=== PATIENT | female | born 1940 | race African-American/Black ===

== ENCOUNTER 2020-05-16 03:15 | Inpatient (IN) ==
[2020-05-16] MEDS ORDERED: SODIUM CHLORIDE 0.9% 500 ML IV STA (03:34)
[2020-05-16] MEDS ORDERED: ONDANSETRON 4 MG/2 ML VIAL IV STA (03:34)
[2020-05-16] MEDS ORDERED: PIPERACILLIN/TAZOBACTAM 3,375 MG in SODIUM CHLORIDE 0.9% 100 ML IV STA (03:34)
[2020-05-16] MEDS ORDERED: methylPREDNISolone SOD SUC 125 MG/2 ML VIAL IV STA (03:34)
[2020-05-16 04:23] LABS: INR 1.1
[2020-05-16 04:37] LABS: Basophils % 0.1 % (0.0-0.8); Immature Granulocytes % 1.3 %; Immature Granulocytes Absolute 0.31 #; Lymphocytes # 16.3 10*3/uL (1.4-4.0); Lymphocytes % 67.3 % (21.3-54.2); Mean Corpuscular HGB Conc 32.7 GM/DL (32-36); Mean Corpuscular Volume 84.6 FL (87-102); Mean Platelet Volume 10.3 FL (9.6-12.0); Monocytes % 14.9 % (1.7-12.7); Neutrophils % 16.4 % (38.7-73.9); Platelet Count 102 T/CUMM (130-400); Red Cell Distribution Width 19.7 % (9.3-17.3); White Blood Count 24.3 T/CUMM (4-12)
[2020-05-16 04:43] LABS: Hemoglobin 3.6 GM/DL (12.0-16.0)
[2020-05-16 04:57] LABS: Bilirubin,Total 0.5 MG/DL (0.2-1.0); Calcium 7.7 MG/DL (8.5-10.1); Total Protein 5.6 G/DL (6.4-8.3)
[2020-05-16] MEDS ORDERED: POTASSIUM CHLORIDE 20 MEQ TABLET PO STA (05:20)
[2020-05-16 05:22] LABS: Ferritin 438.5 ng/ml (8-252)
[2020-05-16] MEDS ORDERED: SODIUM CHLORIDE 0.9% 1,000 ML IV PRN ×2 (05:59→09:43)
[2020-05-16] MEDS ORDERED: ACETAMINOPHEN 325 MG TABLET PO PRN (06:01)
[2020-05-16] MEDS ORDERED: ONDANSETRON 4 MG/2 ML VIAL IV PRN (06:01)
[2020-05-16] MEDS ORDERED: NICOTINE 21 MG/24 HR PATCH TRANSDERM PRN (06:01)
[2020-05-16] MEDS ORDERED: GLUCAGON 1 MG VIAL IM PRN ×2 (06:01→10:30)
[2020-05-16] MEDS ORDERED: MORPHINE 4 MG/1 ML VIAL IV PRN (06:01)
[2020-05-16 06:24] LABS: Lymphocytes 75 % (20-55); Platelet Estimate Decreased; Segmented Neutrophils 23 % (50-85); Total Cells Counted 100
[2020-05-16 06:25] LABS: Hypochromasia 2+; Microcytosis Slight; Spherocytes Few
[2020-05-16 06:36] LABS: % Iron Saturation 89.1 % (18-50)
[2020-05-16 07:09] LABS: Folate 6.2 NG/ML (5.4-24.0)
[2020-05-16 09:44] LABS: Basophils % 0.1 % (0.0-0.8); Immature Granulocytes % 1.9 %; Immature Granulocytes Absolute 0.42 #; Lymphocytes # 14.1 10*3/uL (1.4-4.0); Lymphocytes % 63.8 % (21.3-54.2); Mean Corpuscular HGB Conc 31.6 GM/DL (32-36); Mean Corpuscular Volume 84.4 FL (87-102); Mean Platelet Volume 10.3 FL (9.6-12.0); Monocytes % 15.4 % (1.7-12.7); Neutrophils % 18.8 % (38.7-73.9); Platelet Count 112 T/CUMM (130-400); Red Blood Count 1.35 MC/CUMM (3.8-5.5); Red Cell Distribution Width 19.2 % (9.3-17.3); White Blood Count 22.1 T/CUMM (4-12)
[2020-05-16 09:53] LABS: Hematocrit 11.4 VOL% (35.7-47.0); Hemoglobin 3.6 GM/DL (12.0-16.0)
[2020-05-16 10:11] LABS: Atypical Lymphocytes Few; Band Neutrophils 2 % (0-10); Hypochromasia 2+; Lymphocytes 73 % (20-55); Segmented Neutrophils 23 % (50-85); Smudge Cells Few; Total Cells Counted 100
[2020-05-16 10:12] LABS: Microcytosis 1+
[2020-05-16] MEDS ORDERED: SODIUM CHLORIDE 0.9% 500 ML IV ONE (10:29)
[2020-05-16] MEDS ORDERED: DEXTROSE 50% 25 GM/50 ML VIAL IV PRN (10:30)
[2020-05-16] MEDS: INSULIN NPH/REGULAR 70/30 100 UNIT/ML SUBCUT SCH ×2 (11:43→17:40)
[2020-05-16] MEDS: INSULIN REGULAR 100 UNIT/ML SUBCUT SCH ×3 (11:43→19:53)
[2020-05-16] MEDS ORDERED: PIPERACILLIN/TAZOBACTAM 3,375 MG in SODIUM CHLORIDE 0.9% 100 ML IV SCH (13:00)
[2020-05-16 19:20] LABS: Hematocrit 18.3 VOL% (35.7-47.0)
[2020-05-16 19:24] LABS: Hemoglobin 6.1 GM/DL (12.0-16.0)
[2020-05-16] MEDS: DEXTROSE 50% 25 GM/50 ML VIAL IV PRN (23:33)
[2020-05-17 00:14] LABS: Hematocrit 17.6 VOL% (35.7-47.0); Hemoglobin 5.8 GM/DL (12.0-16.0)
[2020-05-17 01:34] LABS: Bilirubin,Urine Negative (Negative); Blood, Urine Negative (Negative); Glucose,Urine (UA) Negative (Negative); Hyaline Casts,Urine 1 /LPF (0-3); Ketones,Urine Negative (Negative); Nitrite,Urine Negative (Negative); Protein,Urine Negative; RBC,Urine 1 /HPF (0-4); Squamous Epithelial Cell,Urine Occasional /HPF (0-10); Urine Appearance CLEAR (Clear); Urine Color Yellow (Yellow); Urine Specific Gravity 1.045 (1.001-1.035); WBC,Urine 1 /HPF (0-6)
[2020-05-17] MEDS: DEXTROSE 50% 25 GM/50 ML VIAL IV PRN (02:44)
[2020-05-17 04:28] LABS: Basophils # 0.1 10*3/uL (0.0-0.2); Basophils % 0.2 % (0.0-0.8); Hematocrit 18.7 VOL% (35.7-47.0); Immature Granulocytes % 1.3 %; Immature Granulocytes Absolute 0.31 #; Lymphocytes # 16.9 10*3/uL (1.4-4.0); Mean Corpuscular HGB Conc 33.2 GM/DL (32-36); Mean Platelet Volume 10.6 FL (9.6-12.0); Neutrophils % 18.5 % (38.7-73.9); Red Blood Count 2.15 MC/CUMM (3.8-5.5); White Blood Count 24.4 T/CUMM (4-12)
[2020-05-17 04:32] LABS: Hemoglobin 6.2 GM/DL (12.0-16.0); Platelet Count 92 T/CUMM (130-400)
[2020-05-17 04:39] LABS: Calcium 7.8 MG/DL (8.5-10.1); Osmolality,Calculated 287.8 MOS/KG (273-304)
[2020-05-17 05:07] LABS: Band Neutrophils 4 % (0-10); Lymphocytes 69 % (20-55); Metamyelocytes 3 %; Platelet Estimate Decreased; Segmented Neutrophils 15 % (50-85); Total Cells Counted 100
[2020-05-17 05:08] LABS: Anisocytosis Slight; Atypical Lymphocytes 2+; Hypochromasia 1+; Macrocytosis Slight; Reactive Lymphocytes 2+; Smudge Cells Few
[2020-05-17] MEDS ORDERED: SODIUM CHLORIDE 0.9% 1,000 ML IV PRN (08:27)
[2020-05-17] MEDS: INSULIN REGULAR 100 UNIT/ML SUBCUT SCH ×5 (08:38→22:51)
[2020-05-17] MEDS: INSULIN NPH/REGULAR 70/30 100 UNIT/ML SUBCUT SCH ×2 (08:39→17:08)
[2020-05-17 19:31] LABS: Hematocrit 27.1 VOL% (35.7-47.0); Hemoglobin 9.1 GM/DL (12.0-16.0)
[2020-05-18 05:59] LABS: Basophils # 0.1 10*3/uL (0.0-0.2); Basophils % 0.2 % (0.0-0.8); Eosinophils # 0.1 10*3/uL (0.0-0.87); Eosinophils % 0.3 % (0.00-10.9); Hematocrit 28.3 VOL% (35.7-47.0); Hemoglobin 9.2 GM/DL (12.0-16.0); Immature Granulocytes % 1.8 %; Immature Granulocytes Absolute 0.46 #; Lymphocytes # 17.2 10*3/uL (1.4-4.0); Lymphocytes % 67.3 % (21.3-54.2); Mean Corpuscular HGB Conc 32.5 GM/DL (32-36); Mean Corpuscular Volume 87.6 FL (87-102); Mean Platelet Volume 10.9 FL (9.6-12.0); Monocytes % 18.3 % (1.7-12.7); Neutrophils % 12.1 % (38.7-73.9); Red Blood Count 3.23 MC/CUMM (3.8-5.5); Red Cell Distribution Width 15.7 % (9.3-17.3); White Blood Count 25.6 T/CUMM (4-12)
[2020-05-18 06:01] LABS: Platelet Count 96 T/CUMM (130-400)
[2020-05-18 06:27] LABS: Calcium 7.5 MG/DL (8.5-10.1); Osmolality,Calculated 294.3 MOS/KG (273-304)
[2020-05-18 06:55] LABS: Atypical Lymphocytes Few; Band Neutrophils 1 % (0-10); Hypochromasia Slight; Lymphocytes 77 % (20-55); Microcytosis Slight; Platelet Estimate Decreased; Segmented Neutrophils 21 % (50-85); Smudge Cells Few; Total Cells Counted 100
[2020-05-18] MEDS: INSULIN NPH/REGULAR 70/30 100 UNIT/ML SUBCUT SCH ×2 (07:22→16:30)
[2020-05-18] MEDS: INSULIN REGULAR 100 UNIT/ML SUBCUT SCH ×3 (07:46→16:59)
[2020-05-18] MEDS: VANCOMYCIN INJ 1,000 MG in SODIUM CHLORIDE 0.9% 250 ML IV SCH (13:50)
[2020-05-19] MEDS: VANCOMYCIN INJ 1,000 MG in SODIUM CHLORIDE 0.9% 250 ML IV SCH ×2 (00:32→13:08)
[2020-05-19 06:26] LABS: Basophils # 0.1 10*3/uL (0.0-0.2); Basophils % 0.2 % (0.0-0.8); Eosinophils % 0.2 % (0.00-10.9); Hematocrit 28.9 VOL% (35.7-47.0); Hemoglobin 9.2 GM/DL (12.0-16.0); Immature Granulocytes % 1.2 %; Immature Granulocytes Absolute 0.29 #; Lymphocytes # 16.5 10*3/uL (1.4-4.0); Lymphocytes % 67.6 % (21.3-54.2); Mean Corpuscular HGB Conc 31.8 GM/DL (32-36); Mean Corpuscular Volume 89.2 FL (87-102); Mean Platelet Volume 10.5 FL (9.6-12.0); Monocytes % 19.5 % (1.7-12.7); Neutrophils % 11.3 % (38.7-73.9); Red Blood Count 3.24 MC/CUMM (3.8-5.5); Red Cell Distribution Width 15.6 % (9.3-17.3); White Blood Count 24.4 T/CUMM (4-12)
[2020-05-19 06:27] LABS: Platelet Count 76 T/CUMM (130-400)
[2020-05-19 06:44] LABS: Calcium 7.5 MG/DL (8.5-10.1); Osmolality,Calculated 292.4 MOS/KG (273-304)
[2020-05-19 06:54] LABS: Total Cells Counted 100
[2020-05-19 06:55] LABS: Hypochromasia 2+; Lymphocytes 83 % (20-55); Microcytosis 1+; Platelet Estimate Decreased; Segmented Neutrophils 17 % (50-85)
[2020-05-19 07:00] LABS: Atypical Lymphocytes 1+; Smudge Cells Moderate
[2020-05-19] MEDS ORDERED: HEPARIN 5,000 UNIT/1 ML VIAL ONE (08:29)
[2020-05-19] MEDS: INSULIN REGULAR 100 UNIT/ML SUBCUT SCH ×4 (08:36→21:38)
[2020-05-19] MEDS: INSULIN NPH/REGULAR 70/30 100 UNIT/ML SUBCUT SCH ×2 (08:37→16:12)
[2020-05-20] MEDS: VANCOMYCIN INJ 1,000 MG in SODIUM CHLORIDE 0.9% 250 ML IV SCH ×2 (01:02→14:00)
[2020-05-20 05:38] LABS: Albumin 2.3 G/DL (3.4-5.0); Bilirubin,Total 0.6 MG/DL (0.2-1.0); Calcium 7.5 MG/DL (8.5-10.1); Total Protein 4.9 G/DL (6.4-8.3)
[2020-05-20] MEDS: INSULIN REGULAR 100 UNIT/ML SUBCUT SCH ×4 (07:07→21:03)
[2020-05-20] MEDS: INSULIN NPH/REGULAR 70/30 100 UNIT/ML SUBCUT SCH (07:07)
[2020-05-20] MEDS ORDERED: LIDOCAINE 1% 20 ML VIAL ONE (07:55)
[2020-05-20] MEDS ORDERED: BUPIVACAINE MPF 0.25% 30 ML VIAL ONE (07:55)
[2020-05-20] MEDS ORDERED: propofoL 200 MG/20 ML VIAL IV ONE (08:02)
[2020-05-20] MEDS ORDERED: LIDOCAINE 2% 5 ML VIAL ONE ×2 (08:02→08:13)
[2020-05-20] MEDS ORDERED: MIDAZOLAM 2 MG/2 ML VIAL ONE (08:04)
[2020-05-20] MEDS ORDERED: DEXMEDETOMIDINE 200 MCG/2 ML VIAL ONE (08:33)
[2020-05-20] MEDS ORDERED: LACTATED RINGERS 1,000 ML IV ONE (08:37)
[2020-05-21] MEDS: VANCOMYCIN INJ 1,000 MG in SODIUM CHLORIDE 0.9% 250 ML IV SCH ×2 (01:14→12:57)
[2020-05-21 05:42] LABS: Basophils # 0.1 10*3/uL (0.0-0.2); Basophils % 0.2 % (0.0-0.8); Eosinophils # 0.1 10*3/uL (0.0-0.87); Eosinophils % 0.5 % (0.00-10.9); Hematocrit 26.1 VOL% (35.7-47.0); Hemoglobin 8.3 GM/DL (12.0-16.0); Immature Granulocytes % 0.9 %; Immature Granulocytes Absolute 0.18 #; Lymphocytes # 13.9 10*3/uL (1.4-4.0); Lymphocytes % 67.9 % (21.3-54.2); Mean Corpuscular HGB Conc 31.8 GM/DL (32-36); Mean Corpuscular Volume 89.1 FL (87-102); Mean Platelet Volume 10.9 FL (9.6-12.0); Neutrophils % 11.5 % (38.7-73.9); Red Blood Count 2.93 MC/CUMM (3.8-5.5); Red Cell Distribution Width 15.4 % (9.3-17.3); White Blood Count 20.5 T/CUMM (4-12)
[2020-05-21 05:46] LABS: Platelet Count 64 T/CUMM (130-400)
[2020-05-21 06:10] LABS: Calcium 7.8 MG/DL (8.5-10.1); Osmolality,Calculated 280.1 MOS/KG (273-304)
[2020-05-21 06:21] LABS: Total Protein (Chem) 5.8 G/DL (6.4-8.3)
[2020-05-21 06:47] LABS: Atypical Lymphocytes 2+; Band Neutrophils 4 % (0-10); Eosinophils 1 % (0-10); Lymphocytes 66 % (20-55); Platelet Estimate Decreased; Reactive Lymphocytes 2+; Segmented Neutrophils 11 % (50-85); Total Cells Counted 100
[2020-05-21 06:48] LABS: Smudge Cells Moderate
[2020-05-21 08:17] LABS: Albumin (SPE) 3.8 G/DL (3.2-5.3); Albumin (SPE) Rel % 65.8 %; Alpha 1 (SPE) 0.2 G/DL (0.1-0.4); Alpha 1 (SPE) Rel % 4.1 %; Alpha 2 (SPE) 0.7 G/DL (0.4-1.0); Alpha 2 (SPE) Rel % 11.7 %; Beta (SPE) 0.6 G/DL (0.5-1.1); Beta (SPE) Rel % 10.9 %; Gamma (SPE) 0.4 G/DL (0.7-1.7)
[2020-05-21 08:49] LABS: Gamma (SPE) Rel % 7.5 %
[2020-05-21] MEDS: INSULIN REGULAR 100 UNIT/ML SUBCUT SCH ×4 (09:04→21:28)
[2020-05-22] MEDS: VANCOMYCIN INJ 1,000 MG in SODIUM CHLORIDE 0.9% 250 ML IV SCH ×2 (01:55→12:49)
[2020-05-22 05:45] LABS: Basophils # 0.1 10*3/uL (0.0-0.2); Basophils % 0.3 % (0.0-0.8); Eosinophils # 0.1 10*3/uL (0.0-0.87); Eosinophils % 0.4 % (0.00-10.9); Hematocrit 24.6 VOL% (35.7-47.0); Hemoglobin 7.9 GM/DL (12.0-16.0); Immature Granulocytes % 0.9 %; Immature Granulocytes Absolute 0.17 #; Lymphocytes # 11.9 10*3/uL (1.4-4.0); Lymphocytes % 65.2 % (21.3-54.2); Mean Corpuscular HGB Conc 32.1 GM/DL (32-36); Mean Corpuscular Volume 89.8 FL (87-102); Mean Platelet Volume 10.5 FL (9.6-12.0); Monocytes % 20.6 % (1.7-12.7); Neutrophils % 12.6 % (38.7-73.9); Red Blood Count 2.74 MC/CUMM (3.8-5.5); Red Cell Distribution Width 15.4 % (9.3-17.3); White Blood Count 18.2 T/CUMM (4-12)
[2020-05-22 05:50] LABS: Platelet Count 70 T/CUMM (130-400)
[2020-05-22 06:08] LABS: Atypical Lymphocytes Few; Band Neutrophils 3 % (0-10); Hypochromasia 1+; Lymphocytes 76 % (20-55); Platelet Estimate Decreased; Segmented Neutrophils 20 % (50-85); Total Cells Counted 100
[2020-05-22 06:09] LABS: Microcytosis 1+; Smudge Cells Few
[2020-05-22 06:15] LABS: Osmolality,Calculated 288.6 MOS/KG (273-304)
[2020-05-22] MEDS: INSULIN REGULAR 100 UNIT/ML SUBCUT SCH ×4 (09:34→22:13)
[2020-05-23] MEDS: VANCOMYCIN INJ 1,000 MG in SODIUM CHLORIDE 0.9% 250 ML IV SCH (01:45)
[2020-05-23 06:11] LABS: Basophils % 0.2 % (0.0-0.8); Eosinophils # 0.1 10*3/uL (0.0-0.87); Eosinophils % 0.4 % (0.00-10.9); Hematocrit 24.9 VOL% (35.7-47.0); Hemoglobin 7.8 GM/DL (12.0-16.0); Immature Granulocytes % 0.7 %; Immature Granulocytes Absolute 0.13 #; Lymphocytes # 13.8 10*3/uL (1.4-4.0); Lymphocytes % 71.1 % (21.3-54.2); Mean Corpuscular HGB Conc 31.3 GM/DL (32-36); Mean Corpuscular Volume 90.9 FL (87-102); Mean Platelet Volume 10.6 FL (9.6-12.0); Monocytes % 15.6 % (1.7-12.7); Platelet Count 81 T/CUMM (130-400); Red Blood Count 2.74 MC/CUMM (3.8-5.5); Red Cell Distribution Width 15.4 % (9.3-17.3); White Blood Count 19.4 T/CUMM (4-12)
[2020-05-23 06:28] LABS: Calcium 7.9 MG/DL (8.5-10.1); Osmolality,Calculated 286.7 MOS/KG (273-304)
[2020-05-23 08:09] LABS: Eosinophils 1 % (0-10); Lymphocytes 75 % (20-55); Segmented Neutrophils 18 % (50-85); Total Cells Counted 100
[2020-05-23 08:10] LABS: Atypical Lymphocytes Moderate; Hypochromasia 1+; Smudge Cells Few
[2020-05-23 08:11] LABS: Microcytosis 1+; Ovalocytes Slight; Platelet Estimate Decreased
[2020-05-23] MEDS: INSULIN REGULAR 100 UNIT/ML SUBCUT SCH ×3 (08:18→15:40)
[2020-05-23 15:49] VITALS: BP 144/110
== END 2020-05-23 14:59 | disposition home health service (06) | DRG 840 ==
LOC: EDBD → EDUNIT# → N.ED 03:15 → N.EDINP 06:01 → N.5E 07:51
PROVIDERS: ADMIT Internal Medicine; ATTEND Internal Medicine

== ENCOUNTER 2020-05-25 10:42 | Inpatient (IN) ==
[2020-05-25] MEDS ORDERED: DEXTROSE 50% 25 GM/50 ML VIAL IV ONE (10:55)
[2020-05-25 11:37] LABS: Basophils # 0.1 10*3/uL (0.0-0.2); Basophils % 0.3 % (0.0-0.8); Eosinophils % 0.2 % (0.00-10.9); Hematocrit 24.4 VOL% (35.7-47.0); Hemoglobin 7.9 GM/DL (12.0-16.0); Immature Granulocytes % 0.7 %; Immature Granulocytes Absolute 0.18 #; Lymphocytes # 18.4 10*3/uL (1.4-4.0); Lymphocytes % 72.6 % (21.3-54.2); Mean Corpuscular HGB Conc 32.4 GM/DL (32-36); Mean Corpuscular Volume 87.5 FL (87-102); Mean Platelet Volume 9.8 FL (9.6-12.0); Neutrophils % 14.2 % (38.7-73.9); Red Blood Count 2.79 MC/CUMM (3.8-5.5); Red Cell Distribution Width 15.5 % (9.3-17.3)
[2020-05-25 11:40] LABS: Platelet Count 118 T/CUMM (130-400); White Blood Count 25.3 T/CUMM (4-12)
[2020-05-25 12:08] LABS: Calcium 8.1 MG/DL (8.5-10.1)
[2020-05-25 12:09] LABS: Osmolality,Calculated 281.8 MOS/KG (273-304)
[2020-05-25 12:16] LABS: Anisocytosis 1+; Atypical Lymphocytes 1+; Band Neutrophils 2 % (0-10); Eosinophils 1 % (0-10); Lymphocytes 73 % (20-55); Metamyelocytes 1 %; Platelet Estimate Adequate; Segmented Neutrophils 12 % (50-85); Total Cells Counted 100
[2020-05-25] MEDS ORDERED: DEXTROSE 50% 25 GM/50 ML SYRINGE IV ONE (13:15)
[2020-05-25] MEDS ORDERED: DEXTROSE 50% 25 GM/50 ML VIAL IV STA (13:19)
[2020-05-25] MEDS ORDERED: DEXTROSE 10% 250 ML IV ONE (13:40)
[2020-05-25] MEDS: DEXTROSE 10% 1,000 ML IV SCH (14:05)
[2020-05-25] MEDS ORDERED: ACETAMINOPHEN 325 MG TABLET PO PRN (14:06)
[2020-05-25] MEDS ORDERED: GLUCAGON 1 MG VIAL IM PRN (14:06)
[2020-05-25] MEDS ORDERED: DEXTROSE 50% 25 GM/50 ML VIAL IV PRN (14:06)
[2020-05-25] MEDS ORDERED: ONDANSETRON 4 MG/2 ML VIAL IV PRN (14:06)
[2020-05-26 06:16] LABS: Basophils % 0.2 % (0.0-0.8); Eosinophils # 0.1 10*3/uL (0.0-0.87); Eosinophils % 0.4 % (0.00-10.9); Hematocrit 21.1 VOL% (35.7-47.0); Hemoglobin 6.9 GM/DL (12.0-16.0); Immature Granulocytes % 0.8 %; Immature Granulocytes Absolute 0.17 #; Lymphocytes # 15.4 10*3/uL (1.4-4.0); Mean Corpuscular HGB Conc 32.7 GM/DL (32-36); Mean Corpuscular Volume 86.8 FL (87-102); Mean Platelet Volume 10.4 FL (9.6-12.0); Monocytes % 17.9 % (1.7-12.7); Neutrophils % 10.7 % (38.7-73.9); Platelet Count 108 T/CUMM (130-400); Red Blood Count 2.43 MC/CUMM (3.8-5.5); Red Cell Distribution Width 15.4 % (9.3-17.3)
[2020-05-26 06:46] LABS: Calcium 7.6 MG/DL (8.5-10.1); Osmolality,Calculated 281.1 MOS/KG (273-304); Thyroid Stimulating Hormone 2.97 uIU/ml (0.358-3.74)
[2020-05-26 07:02] LABS: Band Neutrophils 2 % (0-10); Eosinophils 1 % (0-10); Hypochromasia 1+; Lymphocytes 77 % (20-55); Segmented Neutrophils 10 % (50-85); Total Cells Counted 100
[2020-05-26 07:03] LABS: Microcytosis 1+; Ovalocytes Slight; Platelet Estimate Decreased
[2020-05-26] MEDS: POTASSIUM CHLORIDE 20 MEQ TABLET PO PRN ×2 (08:53→10:25)
[2020-05-26] MEDS: PANTOPRAZOLE 40 MG TABLET PO SCH (08:53)
[2020-05-26] MEDS: DEXTROSE 10% 1,000 ML IV SCH (16:15)
[2020-05-26] MEDS: MENTHOL/ZINC OXIDE OINT 71 GM JAR TOP SCH ×2 (16:15→21:48)
[2020-05-26] MEDS ORDERED: SODIUM CHLORIDE 0.9% 1,000 ML IV PRN (17:05)
[2020-05-27] MEDS: PANTOPRAZOLE 40 MG TABLET PO SCH (08:45)
[2020-05-27] MEDS: DEXTROSE 10% 1,000 ML IV SCH (08:45)
[2020-05-27] MEDS: MENTHOL/ZINC OXIDE OINT 71 GM JAR TOP SCH ×2 (08:45→22:12)
[2020-05-27 09:38] LABS: Basophils # 0.1 10*3/uL (0.0-0.2); Basophils % 0.3 % (0.0-0.8); Eosinophils # 0.1 10*3/uL (0.0-0.87); Eosinophils % 0.3 % (0.00-10.9); Hematocrit 33.1 VOL% (35.7-47.0); Immature Granulocytes % 0.9 %; Immature Granulocytes Absolute 0.32 #; Lymphocytes # 25.3 10*3/uL (1.4-4.0); Lymphocytes % 74.8 % (21.3-54.2); Mean Corpuscular HGB Conc 33.2 GM/DL (32-36); Mean Corpuscular Volume 87.8 FL (87-102); Mean Platelet Volume 9.5 FL (9.6-12.0); Monocytes % 14.2 % (1.7-12.7); Neutrophils % 9.5 % (38.7-73.9); Platelet Count 132 T/CUMM (130-400); Red Blood Count 3.77 MC/CUMM (3.8-5.5); Red Cell Distribution Width 14.3 % (9.3-17.3); White Blood Count 33.9 T/CUMM (4-12)
[2020-05-27 09:52] LABS: Calcium 8.1 MG/DL (8.5-10.1); Osmolality,Calculated 281.1 MOS/KG (273-304)
[2020-05-27 10:02] LABS: Atypical Lymphocytes 1+; Band Neutrophils 6 % (0-10); Eosinophils 1 % (0-10); Lymphocytes 76 % (20-55); Platelet Estimate Adequate; Segmented Neutrophils 12 % (50-85); Smudge Cells 1+; Total Cells Counted 100
[2020-05-27 10:03] LABS: Anisocytosis Slight
[2020-05-27] MEDS ORDERED: INSULIN NPH/REGULAR 70/30 100 UNIT/ML SUBCUT SCH (17:00)
[2020-05-28 05:58] LABS: Basophils # 0.1 10*3/uL (0.0-0.2); Basophils % 0.3 % (0.0-0.8); Eosinophils # 0.1 10*3/uL (0.0-0.87); Eosinophils % 0.3 % (0.00-10.9); Hematocrit 32.8 VOL% (35.7-47.0); Hemoglobin 10.4 GM/DL (12.0-16.0); Immature Granulocytes % 0.6 %; Immature Granulocytes Absolute 0.16 #; Lymphocytes # 19.5 10*3/uL (1.4-4.0); Lymphocytes % 75.4 % (21.3-54.2); Mean Corpuscular HGB Conc 31.7 GM/DL (32-36); Mean Corpuscular Volume 91.6 FL (87-102); Mean Platelet Volume 9.4 FL (9.6-12.0); Neutrophils % 10.4 % (38.7-73.9); Platelet Count 122 T/CUMM (130-400); Red Blood Count 3.58 MC/CUMM (3.8-5.5); Red Cell Distribution Width 14.3 % (9.3-17.3); White Blood Count 25.8 T/CUMM (4-12)
[2020-05-28 06:10] LABS: Calcium 7.9 MG/DL (8.5-10.1); Osmolality,Calculated 282.8 MOS/KG (273-304)
[2020-05-28 06:21] LABS: Atypical Lymphocytes Few; Hypochromasia 1+; Lymphocytes 77 % (20-55); Microcytosis 1+; Platelet Estimate Normal; Segmented Neutrophils 23 % (50-85); Smudge Cells Moderate; Total Cells Counted 100
[2020-05-28] MEDS ORDERED: INSULIN NPH/REGULAR 70/30 100 UNIT/ML SUBCUT SCH (08:00)
[2020-05-28] MEDS: PANTOPRAZOLE 40 MG TABLET PO SCH (08:25)
[2020-05-28] MEDS: MENTHOL/ZINC OXIDE OINT 71 GM JAR TOP SCH (08:25)
[2020-05-28] MEDS: POTASSIUM CHLORIDE 20 MEQ TABLET PO PRN (08:25)
[2020-05-28 12:28] VITALS: BP 99/55
== END 2020-05-28 16:20 | disposition home health service (06) | DRG 637 ==
LOC: EDUNIT# → EDBD → N.ED 10:42 → N.EDINP 14:05 → N.5E 18:22
PROVIDERS: ADMIT Internal Medicine; ATTEND Internal Medicine

== ENCOUNTER 2020-06-18 12:26 | Inpatient (IN) ==
[2020-06-18 15:45] LABS: Basophils # 0.1 10*3/uL (0.0-0.2); Basophils % 0.2 % (0.0-0.8); Eosinophils # 0.1 10*3/uL (0.0-0.87); Eosinophils % 0.2 % (0.00-10.9); Hematocrit 19.8 VOL% (35.7-47.0); Immature Granulocytes % 1.5 %; Immature Granulocytes Absolute 0.57 #; Lymphocytes # 25.5 10*3/uL (1.4-4.0); Lymphocytes % 65.3 % (21.3-54.2); Mean Corpuscular HGB Conc 32.3 GM/DL (32-36); Mean Corpuscular Volume 88.4 FL (87-102); Mean Platelet Volume 10.1 FL (9.6-12.0); Monocytes % 19.9 % (1.7-12.7); Neutrophils % 12.9 % (38.7-73.9); Platelet Count 152 T/CUMM (130-400); Red Blood Count 2.24 MC/CUMM (3.8-5.5); Red Cell Distribution Width 14.9 % (9.3-17.3); White Blood Count 39.1 T/CUMM (4-12)
[2020-06-18 15:52] LABS: Hemoglobin 6.4 GM/DL (12.0-16.0)
[2020-06-18 15:59] LABS: Albumin 3.2 G/DL (3.4-5.0); Bilirubin,Total 0.7 MG/DL (0.2-1.0); Calcium 8.6 MG/DL (8.5-10.1); Osmolality,Calculated 282.3 MOS/KG (273-304); Potassium 2.8 MMOL/L (3.5-5.1); Total Protein 6.2 G/DL (6.4-8.3)
[2020-06-18 16:13] LABS: Band Neutrophils 3 % (0-10); Lymphocytes 79 % (20-55); Metamyelocytes 2 %; Segmented Neutrophils 16 % (50-85); Total Cells Counted 100
[2020-06-18 16:18] LABS: Hypochromasia Slight; Microcytosis Slight
[2020-06-18 16:22] LABS: Atypical Lymphocytes 1+; Platelet Estimate Normal; Reactive Lymphocytes 1+
[2020-06-18] MEDS ORDERED: DEXTROSE 50% 25 GM/50 ML VIAL IV PRN (16:56)
[2020-06-18] MEDS ORDERED: ONDANSETRON 4 MG/2 ML VIAL IV PRN (16:56)
[2020-06-18] MEDS ORDERED: ACETAMINOPHEN 325 MG TABLET PO PRN (16:56)
[2020-06-18] MEDS ORDERED: GLUCAGON 1 MG VIAL IM PRN (16:56)
[2020-06-18] MEDS ORDERED: FUROSEMIDE 40 MG/4 ML VIAL IV STA (17:03)
[2020-06-18] MEDS ORDERED: POTASSIUM CHLORIDE 20 MEQ TABLET PO STA (17:03)
[2020-06-18] MEDS ORDERED: SODIUM CHLORIDE 0.9% 1,000 ML IV PRN (17:04)
[2020-06-18 17:20] LABS: % Iron Saturation 81.7 % (18-50)
[2020-06-18 17:37] LABS: Bacteria,Urine Occasional /HPF (Few); Bilirubin,Urine Negative (Negative); Blood, Urine Small mg/dL (Negative); Glucose,Urine (UA) Negative (Negative); Ketones,Urine Negative (Negative); Mucus,Urine Many /LPF (Occasional); Nitrite,Urine Positive (Negative); Protein,Urine 100 MG/DL; RBC,Urine 12 /HPF (0-4); Squamous Epithelial Cell,Urine Occasional /HPF (0-10); Urine Appearance CLOUDY (Clear); Urine Color Amber (Yellow); Urine Specific Gravity 1.015 (1.001-1.035); WBC,Urine 1927 /HPF (0-6)
[2020-06-18 17:43] LABS: Folate 5.2 NG/ML (5.38-24.0)
[2020-06-18] MEDS: PANTOPRAZOLE 40 MG VIAL IV SCH (20:45)
[2020-06-18] MEDS: cefTRIAXone 1,000 MG in SYRINGE 1 EACH IV SCH (20:45)
[2020-06-18] MEDS: INSULIN LISPRO 100 UNIT/ML SUBCUT SCH (22:34)
[2020-06-19 05:04] LABS: Basophils # 0.1 10*3/uL (0.0-0.2); Basophils % 0.2 % (0.0-0.8); Eosinophils # 0.1 10*3/uL (0.0-0.87); Eosinophils % 0.3 % (0.00-10.9); Hematocrit 18.9 VOL% (35.7-47.0); Immature Granulocytes % 1.2 %; Immature Granulocytes Absolute 0.41 #; Lymphocytes # 23.7 10*3/uL (1.4-4.0); Lymphocytes % 67.2 % (21.3-54.2); Mean Corpuscular HGB Conc 32.3 GM/DL (32-36); Mean Corpuscular Volume 87.9 FL (87-102); Mean Platelet Volume 10.1 FL (9.6-12.0); Neutrophils % 10.1 % (38.7-73.9); Platelet Count 129 T/CUMM (130-400); Red Blood Count 2.15 MC/CUMM (3.8-5.5); Red Cell Distribution Width 14.6 % (9.3-17.3); White Blood Count 35.3 T/CUMM (4-12)
[2020-06-19 05:07] LABS: Hemoglobin 6.1 GM/DL (12.0-16.0)
[2020-06-19 05:47] LABS: Albumin 2.7 G/DL (3.4-5.0); Bilirubin,Total 0.9 MG/DL (0.2-1.0); Calcium 8.2 MG/DL (8.5-10.1); Osmolality,Calculated 280.3 MOS/KG (273-304); Potassium 3.2 MMOL/L (3.5-5.1); Total Protein 5.4 G/DL (6.4-8.3)
[2020-06-19 05:55] LABS: Atypical Lymphocytes Few; Band Neutrophils 1 % (0-10); Hypochromasia 2+; Lymphocytes 78 % (20-55); Platelet Estimate Normal; Segmented Neutrophils 16 % (50-85); Total Cells Counted 100
[2020-06-19] MEDS ORDERED: SODIUM CHLORIDE 0.9% 1,000 ML IV PRN (10:03)
[2020-06-19] MEDS ORDERED: POTASSIUM CHLORIDE 20 MEQ TABLET PO ONE (10:55)
[2020-06-19] MEDS: PANTOPRAZOLE 40 MG VIAL IV SCH ×2 (11:33→21:32)
[2020-06-19] MEDS: INSULIN LISPRO 100 UNIT/ML SUBCUT SCH ×3 (11:35→21:46)
[2020-06-19 17:32] LABS: Basophils # 0.2 10*3/uL (0.0-0.2); Basophils % 0.3 % (0.0-0.8); Eosinophils # 0.1 10*3/uL (0.0-0.87); Eosinophils % 0.2 % (0.00-10.9); Hematocrit 30.2 VOL% (35.7-47.0); Immature Granulocytes % 1.5 %; Immature Granulocytes Absolute 0.74 #; Lymphocytes # 34.8 10*3/uL (1.4-4.0); Lymphocytes % 68.7 % (21.3-54.2); Mean Corpuscular HGB Conc 33.1 GM/DL (32-36); Mean Corpuscular Volume 86.8 FL (87-102); Mean Platelet Volume 9.7 FL (9.6-12.0); Monocytes % 19.7 % (1.7-12.7); Neutrophils % 9.6 % (38.7-73.9); Platelet Count 129 T/CUMM (130-400); Red Blood Count 3.48 MC/CUMM (3.8-5.5); Red Cell Distribution Width 14.6 % (9.3-17.3)
[2020-06-19 17:34] LABS: White Blood Count 50.6 T/CUMM (4-12)
[2020-06-19] MEDS: cefTRIAXone 1,000 MG in SYRINGE 1 EACH IV SCH (17:52)
[2020-06-19 17:58] LABS: Atypical Lymphocytes Few; Eosinophils 2 % (0-10); Lymphocytes 82 % (20-55); Platelet Estimate Normal; Segmented Neutrophils 16 % (50-85); Smudge Cells Moderate; Total Cells Counted 100
[2020-06-19 17:59] LABS: Hypochromasia 1+; Microcytosis Slight
[2020-06-19 18:02] LABS: Bilirubin,Total 0.9 MG/DL (0.2-1.0); Calcium 8.2 MG/DL (8.5-10.1); Osmolality,Calculated 283.1 MOS/KG (273-304); Potassium 3.6 MMOL/L (3.5-5.1)
[2020-06-19] MEDS ORDERED: LOPERAMIDE 2 MG CAPSULE PO PRN (18:28)
[2020-06-20 05:25] LABS: Basophils # 0.1 10*3/uL (0.0-0.2); Basophils % 0.3 % (0.0-0.8); Eosinophils # 0.1 10*3/uL (0.0-0.87); Eosinophils % 0.3 % (0.00-10.9); Hematocrit 26.8 VOL% (35.7-47.0); Immature Granulocytes % 1.4 %; Immature Granulocytes Absolute 0.53 #; Lymphocytes # 26.1 10*3/uL (1.4-4.0); Lymphocytes % 69.9 % (21.3-54.2); Mean Corpuscular HGB Conc 33.6 GM/DL (32-36); Mean Corpuscular Volume 87.3 FL (87-102); Monocytes % 18.7 % (1.7-12.7); Neutrophils % 9.4 % (38.7-73.9); Platelet Count 120 T/CUMM (130-400); Red Blood Count 3.07 MC/CUMM (3.8-5.5); Red Cell Distribution Width 14.4 % (9.3-17.3); White Blood Count 37.4 T/CUMM (4-12)
[2020-06-20 05:51] LABS: Albumin 2.5 G/DL (3.4-5.0); Bilirubin,Total 0.8 MG/DL (0.2-1.0); Osmolality,Calculated 281.1 MOS/KG (273-304); Potassium 3.3 MMOL/L (3.5-5.1); Total Protein 5.3 G/DL (6.4-8.3)
[2020-06-20] MEDS: INSULIN LISPRO 100 UNIT/ML SUBCUT SCH ×4 (08:08→20:59)
[2020-06-20] MEDS: POTASSIUM CHLORIDE 20 MEQ TABLET PO PRN ×3 (08:52→13:01)
[2020-06-20] MEDS: PANTOPRAZOLE 40 MG VIAL IV SCH ×2 (08:52→21:46)
[2020-06-20] MEDS ORDERED: SODIUM CHLORIDE 0.9% 1,000 ML IV PRN (16:00)
[2020-06-20] MEDS: cefTRIAXone 1,000 MG in SYRINGE 1 EACH IV SCH (17:08)
[2020-06-20] MEDS: MENTHOL/ZINC OXIDE OINT 71 GM JAR TOP SCH (21:49)
[2020-06-21 05:51] LABS: Basophils # 0.1 10*3/uL (0.0-0.2); Basophils % 0.4 % (0.0-0.8); Eosinophils # 0.2 10*3/uL (0.0-0.87); Eosinophils % 0.5 % (0.00-10.9); Hematocrit 26.8 VOL% (35.7-47.0); Hemoglobin 8.6 GM/DL (12.0-16.0); Immature Granulocytes % 1.4 %; Immature Granulocytes Absolute 0.49 #; Lymphocytes # 27.4 10*3/uL (1.4-4.0); Lymphocytes % 75.4 % (21.3-54.2); Mean Corpuscular HGB Conc 32.1 GM/DL (32-36); Mean Corpuscular Volume 89.3 FL (87-102); Mean Platelet Volume 10.3 FL (9.6-12.0); Monocytes % 14.5 % (1.7-12.7); Neutrophils % 7.8 % (38.7-73.9); Platelet Count 107 T/CUMM (130-400); Red Cell Distribution Width 14.6 % (9.3-17.3); White Blood Count 36.3 T/CUMM (4-12)
[2020-06-21 06:10] LABS: Albumin 2.5 G/DL (3.4-5.0); Bilirubin,Total 0.5 MG/DL (0.2-1.0); Calcium 7.8 MG/DL (8.5-10.1); Osmolality,Calculated 282.8 MOS/KG (273-304); Potassium 3.8 MMOL/L (3.5-5.1); Total Protein 5.2 G/DL (6.4-8.3)
[2020-06-21 06:45] LABS: Atypical Lymphocytes 1+; Band Neutrophils 2 % (0-10); Eosinophils 2 % (0-10); Lymphocytes 78 % (20-55); Myelocytes 2 %; Platelet Estimate Adequate; Segmented Neutrophils 8 % (50-85); Smudge Cells 2+; Total Cells Counted 100
[2020-06-21 06:46] LABS: Anisocytosis 1+; Hypochromasia Slight
[2020-06-21] MEDS: MENTHOL/ZINC OXIDE OINT 71 GM JAR TOP SCH ×2 (08:50→20:59)
[2020-06-21] MEDS: PANTOPRAZOLE 40 MG VIAL IV SCH ×2 (08:50→20:59)
[2020-06-21] MEDS: INSULIN LISPRO 100 UNIT/ML SUBCUT SCH ×4 (08:55→20:58)
[2020-06-21] MEDS: cefTRIAXone 1,000 MG in SYRINGE 1 EACH IV SCH (17:23)
[2020-06-22 05:47] LABS: Basophils # 0.1 10*3/uL (0.0-0.2); Basophils % 0.3 % (0.0-0.8); Eosinophils # 0.1 10*3/uL (0.0-0.87); Eosinophils % 0.3 % (0.00-10.9); Hemoglobin 8.6 GM/DL (12.0-16.0); Immature Granulocytes % 1.1 %; Immature Granulocytes Absolute 0.47 #; Mean Corpuscular HGB Conc 31.9 GM/DL (32-36); Mean Corpuscular Volume 89.7 FL (87-102); Mean Platelet Volume 10.2 FL (9.6-12.0); Monocytes % 17.6 % (1.7-12.7); Neutrophils % 7.7 % (38.7-73.9); Platelet Count 101 T/CUMM (130-400); Red Blood Count 3.01 MC/CUMM (3.8-5.5); Red Cell Distribution Width 14.6 % (9.3-17.3)
[2020-06-22 05:51] LABS: White Blood Count 41.1 T/CUMM (4-12)
[2020-06-22 06:09] LABS: Albumin 2.4 G/DL (3.4-5.0); Bilirubin,Total 0.5 MG/DL (0.2-1.0); Calcium 7.9 MG/DL (8.5-10.1); Potassium 3.7 MMOL/L (3.5-5.1)
[2020-06-22 06:23] LABS: Atypical Lymphocytes 1+; Band Neutrophils 2 % (0-10); Eosinophils 1 % (0-10); Lymphocytes 81 % (20-55); Nucleated Red Blood Cells 1 (0-5); Platelet Estimate Adequate; Segmented Neutrophils 9 % (50-85); Smudge Cells 3+; Total Cells Counted 100
[2020-06-22 06:24] LABS: Anisocytosis Slight; Spherocytes Few
[2020-06-22] MEDS: INSULIN LISPRO 100 UNIT/ML SUBCUT SCH ×4 (07:21→21:20)
[2020-06-22] MEDS: PANTOPRAZOLE 40 MG VIAL IV SCH ×2 (09:04→21:20)
[2020-06-22] MEDS: POTASSIUM CHLORIDE 20 MEQ TABLET PO PRN (09:04)
[2020-06-22] MEDS: MENTHOL/ZINC OXIDE OINT 71 GM JAR TOP SCH ×2 (09:08→21:21)
[2020-06-22] MEDS ORDERED: DEXTROSE 50% 25 GM/50 ML VIAL IV PRN (13:53)
[2020-06-22] MEDS: cefTRIAXone 1,000 MG in SYRINGE 1 EACH IV SCH (18:02)
[2020-06-23 06:54] LABS: Basophils # 0.1 10*3/uL (0.0-0.2); Basophils % 0.3 % (0.0-0.8); Eosinophils # 0.2 10*3/uL (0.0-0.87); Eosinophils % 0.5 % (0.00-10.9); Hematocrit 27.3 VOL% (35.7-47.0); Hemoglobin 8.7 GM/DL (12.0-16.0); Immature Granulocytes % 1.1 %; Immature Granulocytes Absolute 0.49 #; Lymphocytes # 32.3 10*3/uL (1.4-4.0); Mean Corpuscular HGB Conc 31.9 GM/DL (32-36); Mean Corpuscular Volume 89.2 FL (87-102); Mean Platelet Volume 10.1 FL (9.6-12.0); Monocytes % 18.2 % (1.7-12.7); Neutrophils % 7.9 % (38.7-73.9); Platelet Count 117 T/CUMM (130-400); Red Blood Count 3.06 MC/CUMM (3.8-5.5); Red Cell Distribution Width 14.6 % (9.3-17.3)
[2020-06-23 06:56] LABS: White Blood Count 44.9 T/CUMM (4-12)
[2020-06-23] MEDS: INSULIN LISPRO 100 UNIT/ML SUBCUT SCH ×4 (07:23→20:32)
[2020-06-23 07:31] LABS: Potassium 3.9 MMOL/L (3.5-5.1)
[2020-06-23 07:38] LABS: Band Neutrophils 2 % (0-10); Eosinophils 1 % (0-10); Lymphocytes 84 % (20-55); Platelet Estimate Adequate; Segmented Neutrophils 9 % (50-85); Total Cells Counted 100
[2020-06-23 07:39] LABS: Anisocytosis Slight; Atypical Lymphocytes Few; Smudge Cells 2+
[2020-06-23] MEDS: PANTOPRAZOLE 40 MG VIAL IV SCH ×2 (08:06→20:30)
[2020-06-23] MEDS: MENTHOL/ZINC OXIDE OINT 71 GM JAR TOP SCH ×2 (08:07→20:32)
[2020-06-23 08:41] LABS: Albumin 2.6 G/DL (3.4-5.0); Bilirubin,Total 0.5 MG/DL (0.2-1.0); Osmolality,Calculated 280.1 MOS/KG (273-304); Total Protein 5.1 G/DL (6.4-8.3)
[2020-06-23] MEDS ORDERED: SODIUM CHLORIDE 0.9% 1,000 ML IV PRN (10:24)
[2020-06-23] MEDS: cefTRIAXone 1,000 MG in SYRINGE 1 EACH IV SCH (20:32)
[2020-06-24 03:21] LABS: Basophils # 0.2 10*3/uL (0.0-0.2); Basophils % 0.4 % (0.0-0.8); Eosinophils # 0.2 10*3/uL (0.0-0.87); Eosinophils % 0.3 % (0.00-10.9); Hematocrit 30.2 VOL% (35.7-47.0); Hemoglobin 9.6 GM/DL (12.0-16.0); Immature Granulocytes % 1.1 %; Immature Granulocytes Absolute 0.48 #; Lymphocytes # 30.9 10*3/uL (1.4-4.0); Mean Corpuscular HGB Conc 31.8 GM/DL (32-36); Mean Corpuscular Volume 87.5 FL (87-102); Mean Platelet Volume 10.5 FL (9.6-12.0); Monocytes % 19.5 % (1.7-12.7); NRBC # 0.02 10*3/uL; Neutrophils % 7.7 % (38.7-73.9); Platelet Count 95 T/CUMM (130-400); Red Blood Count 3.45 MC/CUMM (3.8-5.5); Red Cell Distribution Width 14.6 % (9.3-17.3)
[2020-06-24 03:29] LABS: White Blood Count 43.6 T/CUMM (4-12)
[2020-06-24 03:37] LABS: Albumin 2.4 G/DL (3.4-5.0); Bilirubin,Total 0.4 MG/DL (0.2-1.0); Calcium 7.4 MG/DL (8.5-10.1); Calcium 7.7 MG/DL (8.5-10.1); Osmolality,Calculated 277.4 MOS/KG (273-304); Osmolality,Calculated 281.1 MOS/KG (273-304); Potassium 3.7 MMOL/L (3.5-5.1); Total Protein 5.2 G/DL (6.4-8.3)
[2020-06-24 05:06] LABS: Atypical Lymphocytes Few; Hypochromasia 1+; Microcytosis 1+; Platelet Estimate Decreased
[2020-06-24 05:07] LABS: Smudge Cells Few
[2020-06-24] MEDS ORDERED: MAGNESIUM SULF RIDER 4 GM in PREMIX 1 EACH IV PRN (06:53)
[2020-06-24] MEDS ORDERED: MAGNESIUM SULF RIDER 2 GM in PREMIX 1 EACH IV PRN (06:53)
[2020-06-24] MEDS: INSULIN LISPRO 100 UNIT/ML SUBCUT SCH ×4 (07:35→20:38)
[2020-06-24] MEDS: MENTHOL/ZINC OXIDE OINT 71 GM JAR TOP SCH ×2 (08:26→20:37)
[2020-06-24] MEDS: PANTOPRAZOLE 40 MG VIAL IV SCH ×2 (08:26→20:33)
[2020-06-24] MEDS: cefTRIAXone 1,000 MG in SYRINGE 1 EACH IV SCH (20:35)
[2020-06-25 05:41] LABS: Basophils # 0.1 10*3/uL (0.0-0.2); Basophils % 0.3 % (0.0-0.8); Eosinophils # 0.2 10*3/uL (0.0-0.87); Eosinophils % 0.4 % (0.00-10.9); Hematocrit 30.1 VOL% (35.7-47.0); Hemoglobin 9.6 GM/DL (12.0-16.0); Immature Granulocytes % 0.8 %; Immature Granulocytes Absolute 0.33 #; Lymphocytes # 29.8 10*3/uL (1.4-4.0); Lymphocytes % 72.7 % (21.3-54.2); Mean Corpuscular HGB Conc 31.9 GM/DL (32-36); Mean Corpuscular Volume 89.6 FL (87-102); Monocytes % 19.9 % (1.7-12.7); Neutrophils % 5.9 % (38.7-73.9); Platelet Count 123 T/CUMM (130-400); Red Blood Count 3.36 MC/CUMM (3.8-5.5); Red Cell Distribution Width 14.6 % (9.3-17.3)
[2020-06-25 06:05] LABS: Albumin 2.4 G/DL (3.4-5.0); Bilirubin,Total 1.3 MG/DL (0.2-1.0); Calcium 8.1 MG/DL (8.5-10.1); Osmolality,Calculated 281.1 MOS/KG (273-304); Potassium 3.8 MMOL/L (3.5-5.1); Total Protein 5.1 G/DL (6.4-8.3)
[2020-06-25 06:54] LABS: Anisocytosis 1+; Platelet Estimate Adequate; Smudge Cells 1+
[2020-06-25] MEDS: INSULIN LISPRO 100 UNIT/ML SUBCUT SCH (07:14)
[2020-06-25] MEDS: PANTOPRAZOLE 40 MG VIAL IV SCH (08:12)
[2020-06-25] MEDS: MENTHOL/ZINC OXIDE OINT 71 GM JAR TOP SCH (08:13)
[2020-06-25 12:18] VITALS: BP 102/57
== END 2020-06-25 12:15 | disposition home or self-care (01) | DRG 840 ==
LOC: N.ED 12:26 → N.EDINP 16:56 → SUATTDRO 16:56 → N.4E 17:30
PROVIDERS: ADMIT Family Medicine; ATTEND Emergency Medicine

== ENCOUNTER 2020-10-28 19:14 | Inpatient (IN) ==
[2020-10-28 21:20] LABS: Basophils % 0.2 % (0.0-0.8); Eosinophils % 0.2 % (0.00-10.9); Hematocrit 27.4 VOL% (35.7-47.0); Hemoglobin 8.1 GM/DL (12.0-16.0); Immature Granulocytes % 0.8 %; Immature Granulocytes Absolute 0.13 #; Mean Corpuscular HGB Conc 29.6 GM/DL (32-36); Mean Corpuscular Volume 85.4 FL (87-102); Monocytes % 32.1 % (1.7-12.7); Neutrophils % 7.7 % (38.7-73.9); Platelet Count 52 T/CUMM (130-400); Red Blood Count 3.21 MC/CUMM (3.8-5.5); White Blood Count 16.9 T/CUMM (4-12)
[2020-10-28 21:35] LABS: Albumin 2.7 G/DL (3.4-5.0); Bilirubin,Total 0.5 MG/DL (0.2-1.0); Calcium 8.1 MG/DL (8.5-10.1); Osmolality,Calculated 284.3 MOS/KG (273-304); Potassium 3.1 MMOL/L (3.5-5.1); Total Protein 5.7 G/DL (6.4-8.2)
[2020-10-28 21:51] LABS: Bilirubin,Urine Negative (Negative); Blood, Urine Negative (Negative); Glucose,Urine (UA) Negative (Negative); Ketones,Urine Negative (Negative); Mucus,Urine Occasional /LPF (Occasional); Nitrite,Urine Negative (Negative); Protein,Urine 30 MG/DL; RBC,Urine 1 /HPF (0-4); Squamous Epithelial Cell,Urine Occasional /HPF (0-10); Urine Appearance CLEAR (Clear); Urine Color Yellow (Yellow)
[2020-10-28 22:01] LABS: Atypical Lymphocytes 1+; Eosinophils 1 % (0-10); Lymphocytes 82 % (20-55); Platelet Estimate Adequate; Reactive Lymphocytes 2+; Segmented Neutrophils 6 % (50-85); Total Cells Counted 100
[2020-10-29] MEDS ORDERED: SODIUM CHLORIDE 0.9% 1,000 ML IV STA (00:36)
[2020-10-29] MEDS ORDERED: ONDANSETRON 4 MG/2 ML VIAL IV STA (00:36)
[2020-10-29] MEDS ORDERED: SIMETHICONE CHEW 125 MG TABLET PO PRN (01:01)
[2020-10-29] MEDS ORDERED: ONDANSETRON 4 MG/2 ML VIAL IV PRN (01:01)
[2020-10-29] MEDS ORDERED: DOCUSATE SODIUM 100 MG CAPSULE PO PRN (01:01)
[2020-10-29] MEDS ORDERED: GLUCAGON 1 MG VIAL IM PRN ×3 (01:01→01:22)
[2020-10-29] MEDS ORDERED: DEXTROSE 50% 25 GM/50 ML VIAL IV PRN ×3 (01:01→01:22)
[2020-10-29] MEDS: LACTATED RINGERS 1,000 ML IV SCH ×2 (01:31→19:01)
[2020-10-29] MEDS: CIPROFLOXACIN INJ 400 MG/200 ML PREMIX IV SCH ×2 (02:02→13:19)
[2020-10-29 05:55] LABS: Basophils % 0.2 % (0.0-0.8); Eosinophils % 0.2 % (0.00-10.9); Hematocrit 25.9 VOL% (35.7-47.0); Hemoglobin 7.7 GM/DL (12.0-16.0); Immature Granulocytes % 1.4 %; Immature Granulocytes Absolute 0.24 #; Lymphocytes # 9.8 10*3/uL (1.4-4.0); Lymphocytes % 55.7 % (21.3-54.2); Mean Corpuscular HGB Conc 29.7 GM/DL (32-36); Mean Corpuscular Volume 86.3 FL (87-102); Monocytes % 36.8 % (1.7-12.7); Neutrophils % 5.7 % (38.7-73.9); Platelet Count 47 T/CUMM (130-400); White Blood Count 17.5 T/CUMM (4-12)
[2020-10-29 06:18] LABS: Albumin 2.5 G/DL (3.4-5.0); Bilirubin,Total 0.8 MG/DL (0.2-1.0); Calcium 7.8 MG/DL (8.5-10.1); Potassium 2.9 MMOL/L (3.5-5.1); Total Protein 5.2 G/DL (6.4-8.2)
[2020-10-29 06:21] LABS: Band Neutrophils 1 % (0-10); Lymphocytes 75 % (20-55); Segmented Neutrophils 11 % (50-85); Total Cells Counted 100
[2020-10-29 06:22] LABS: Atypical Lymphocytes Moderate; Hypochromasia 1+; Microcytosis 1+; Smudge Cells Few
[2020-10-29 06:23] LABS: Anisocytosis 1+; Platelet Estimate Decreased
[2020-10-29] MEDS: INSULIN REGULAR 100 UNIT/ML SUBCUT SCH ×4 (06:29→23:22)
[2020-10-29] MEDS ORDERED: MAGNESIUM SULF RIDER 2 GM/50 ML PREMIX IV ONE (08:00)
[2020-10-29] MEDS ORDERED: TRIFLURIDINE 1% OPH SOLN 7.5 ML BOTTLE BOTH EYES SCH (09:00)
[2020-10-29] MEDS: valACYclovir 500 MG TABLET PO SCH ×2 (09:31→20:31)
[2020-10-29] MEDS: PANTOPRAZOLE 40 MG TABLET PO SCH (09:31)
[2020-10-29] MEDS: cefTRIAXone 1,000 MG in SODIUM CHLORIDE 0.9% 100 ML IV SCH (11:45)
[2020-10-29] MEDS: POTASSIUM CHLORIDE RIDER 10 MEQ/100 ML PREMIX IV PRN ×3 (12:23→21:49)
[2020-10-29] MEDS: TRIFLURIDINE 1% OPH SOLN 7.5 ML BOTTLE BOTH EYES SCH ×3 (13:19→20:31)
[2020-10-29] MEDS: POTASSIUM CHLORIDE RIDER 20 MEQ/100 ML PREMIX IV PRN ×2 (13:19→15:20)
[2020-10-30] MEDS: CIPROFLOXACIN INJ 400 MG/200 ML PREMIX IV SCH ×2 (01:32→13:51)
[2020-10-30] MEDS: INSULIN REGULAR 100 UNIT/ML SUBCUT SCH ×4 (06:08→23:56)
[2020-10-30 06:24] LABS: Basophils % 0.1 % (0.0-0.8); Eosinophils # 0.1 10*3/uL (0.0-0.87); Eosinophils % 0.6 % (0.00-10.9); Hematocrit 26.9 VOL% (35.7-47.0); Hemoglobin 7.8 GM/DL (12.0-16.0); Immature Granulocytes % 0.6 %; Immature Granulocytes Absolute 0.08 #; Lymphocytes # 8.2 10*3/uL (1.4-4.0); Lymphocytes % 56.7 % (21.3-54.2); Mean Corpuscular Volume 87.1 FL (87-102); Monocytes % 35.2 % (1.7-12.7); Neutrophils % 6.8 % (38.7-73.9); Platelet Count 46 T/CUMM (130-400); Red Blood Count 3.09 MC/CUMM (3.8-5.5); Red Cell Distribution Width 26.9 % (9.3-17.3); White Blood Count 14.5 T/CUMM (4-12)
[2020-10-30 06:35] LABS: Calcium 7.9 MG/DL (8.5-10.1); Osmolality,Calculated 279.3 MOS/KG (273-304); Potassium 3.9 MMOL/L (3.5-5.1)
[2020-10-30 06:56] LABS: Atypical Lymphocytes Few; Band Neutrophils 1 % (0-10); Hypochromasia 1+; Lymphocytes 80 % (20-55); Microcytosis 1+; Platelet Estimate Decreased; Segmented Neutrophils 11 % (50-85); Smudge Cells Few; Total Cells Counted 100
[2020-10-30] MEDS: LACTATED RINGERS 1,000 ML IV SCH ×3 (08:07→20:40)
[2020-10-30] MEDS: valACYclovir 500 MG TABLET PO SCH ×2 (08:56→20:40)
[2020-10-30] MEDS: PANTOPRAZOLE 40 MG TABLET PO SCH (08:56)
[2020-10-30] MEDS: TRIFLURIDINE 1% OPH SOLN 7.5 ML BOTTLE BOTH EYES SCH ×4 (08:57→20:55)
[2020-10-30] MEDS: cefTRIAXone 1,000 MG in SODIUM CHLORIDE 0.9% 100 ML IV SCH (11:40)
[2020-10-30] MEDS: MUPIROCIN 2% OINT 22 GM TUBE TOP SCH (20:40)
[2020-10-31] MEDS: CIPROFLOXACIN INJ 400 MG/200 ML PREMIX IV SCH (01:31)
[2020-10-31] MEDS: INSULIN REGULAR 100 UNIT/ML SUBCUT SCH ×4 (05:25→23:28)
[2020-10-31 06:15] LABS: Basophils % 0.1 % (0.0-0.8); Eosinophils # 0.1 10*3/uL (0.0-0.87); Eosinophils % 0.6 % (0.00-10.9); Hematocrit 27.4 VOL% (35.7-47.0); Immature Granulocytes % 0.4 %; Immature Granulocytes Absolute 0.06 #; Lymphocytes # 8.7 10*3/uL (1.4-4.0); Lymphocytes % 60.6 % (21.3-54.2); Mean Corpuscular HGB Conc 29.2 GM/DL (32-36); Mean Corpuscular Volume 85.9 FL (87-102); Monocytes % 33.6 % (1.7-12.7); Neutrophils % 4.7 % (38.7-73.9); Red Blood Count 3.19 MC/CUMM (3.8-5.5); Red Cell Distribution Width 26.6 % (9.3-17.3); White Blood Count 14.4 T/CUMM (4-12)
[2020-10-31 06:25] LABS: Platelet Count 43 T/CUMM (130-400)
[2020-10-31 06:35] LABS: Calcium 8.4 MG/DL (8.5-10.1); Osmolality,Calculated 280.1 MOS/KG (273-304); Potassium 3.7 MMOL/L (3.5-5.1)
[2020-10-31 06:46] LABS: Atypical Lymphocytes 1+; Band Neutrophils 2 % (0-10); Eosinophils 1 % (0-10); Lymphocytes 71 % (20-55); Nucleated Red Blood Cells 1 (0-5); Platelet Estimate Decreased; Promyelocytes 1 %; Segmented Neutrophils 9 % (50-85); Smudge Cells 1+; Total Cells Counted 100
[2020-10-31 06:47] LABS: Anisocytosis 1+; Hypochromasia Slight; Poikilocytosis Slight
[2020-10-31] MEDS ORDERED: FUROSEMIDE 40 MG/4 ML VIAL IV ONE (09:00)
[2020-10-31] MEDS: valACYclovir 500 MG TABLET PO SCH ×2 (09:13→21:31)
[2020-10-31] MEDS: MUPIROCIN 2% OINT 22 GM TUBE TOP SCH ×3 (09:13→21:32)
[2020-10-31] MEDS: PANTOPRAZOLE 40 MG TABLET PO SCH (09:13)
[2020-10-31] MEDS: TRIFLURIDINE 1% OPH SOLN 7.5 ML BOTTLE BOTH EYES SCH ×4 (09:45→21:32)
[2020-10-31] MEDS: LACTATED RINGERS 1,000 ML IV SCH (09:46)
[2020-10-31] MEDS: cefTRIAXone 1,000 MG in SODIUM CHLORIDE 0.9% 100 ML IV SCH (11:11)
[2020-10-31 20:16] LABS: Herpes Source FACE
[2020-11-01 06:13] LABS: Basophils % 0.1 % (0.0-0.8); Eosinophils # 0.1 10*3/uL (0.0-0.87); Eosinophils % 0.4 % (0.00-10.9); Hematocrit 27.2 VOL% (35.7-47.0); Hemoglobin 8.2 GM/DL (12.0-16.0); Immature Granulocytes % 0.1 %; Immature Granulocytes Absolute 0.02 #; Lymphocytes # 10.1 10*3/uL (1.4-4.0); Lymphocytes % 58.5 % (21.3-54.2); Mean Corpuscular HGB Conc 30.1 GM/DL (32-36); Monocytes % 38.4 % (1.7-12.7); Neutrophils % 2.5 % (38.7-73.9); Red Cell Distribution Width 26.7 % (9.3-17.3); White Blood Count 17.2 T/CUMM (4-12)
[2020-11-01 06:15] LABS: Platelet Count 46 T/CUMM (130-400)
[2020-11-01 06:38] LABS: Lymphocytes 93 % (20-55); Segmented Neutrophils 2 % (50-85); Total Cells Counted 100
[2020-11-01 06:39] LABS: Atypical Lymphocytes Few; Hypochromasia 1+; Microcytosis 1+; Platelet Estimate Decreased; Smudge Cells Few
[2020-11-01] MEDS: INSULIN REGULAR 100 UNIT/ML SUBCUT SCH ×4 (06:51→23:42)
[2020-11-01] MEDS ORDERED: ERGOCALCIFEROL 50,000 UNIT CAPSULE PO ONE (08:38)
[2020-11-01] MEDS ORDERED: VANCOMYCIN INJ 1,000 MG in SODIUM CHLORIDE 0.9% 250 ML IV SCH (09:00)
[2020-11-01] MEDS: PANTOPRAZOLE 40 MG TABLET PO SCH (09:23)
[2020-11-01] MEDS: LUBIPROSTONE 8 MCG CAPSULE PO SCH ×2 (09:23→21:17)
[2020-11-01] MEDS: POTASSIUM CHLORIDE 20 MEQ TABLET PO SCH (09:23)
[2020-11-01] MEDS: CHOLECALCIFEROL 1,000 UNIT TABLET PO SCH (09:24)
[2020-11-01] MEDS: valACYclovir 500 MG TABLET PO SCH ×2 (09:24→21:05)
[2020-11-01] MEDS: MUPIROCIN 2% OINT 22 GM TUBE TOP SCH ×3 (09:26→21:05)
[2020-11-01] MEDS: TRIFLURIDINE 1% OPH SOLN 7.5 ML BOTTLE BOTH EYES SCH ×4 (09:45→21:17)
[2020-11-01] MEDS: DOCUSATE SODIUM 100 MG CAPSULE PO SCH ×2 (09:45→21:16)
[2020-11-01] MEDS: POLYETHYLENE GLYCOL POWDER 17 GM PACK PO SCH ×2 (09:45→21:17)
[2020-11-01] MEDS: LINACLOTIDE 145 MCG CAPSULE PO SCH (09:59)
[2020-11-01] MEDS: cefTRIAXone 1,000 MG in SODIUM CHLORIDE 0.9% 100 ML IV SCH (12:53)
[2020-11-01 13:29] LABS: Specimen Source FACE
[2020-11-01] MEDS ORDERED: LEVOFLOXACIN INJ 500 MG/100 ML PREMIX IV SCH (14:30)
[2020-11-01] MEDS: FUROSEMIDE 20 MG/2 ML VIAL IV SCH (16:37)
[2020-11-02 05:02] LABS: Basophils % 0.1 % (0.0-0.8); Eosinophils # 0.1 10*3/uL (0.0-0.87); Eosinophils % 0.3 % (0.00-10.9); Hematocrit 26.5 VOL% (35.7-47.0); Immature Granulocytes % 0.1 %; Immature Granulocytes Absolute 0.02 #; Lymphocytes # 10.3 10*3/uL (1.4-4.0); Lymphocytes % 59.1 % (21.3-54.2); Mean Corpuscular HGB Conc 29.8 GM/DL (32-36); Mean Corpuscular Volume 84.1 FL (87-102); Monocytes % 38.7 % (1.7-12.7); Neutrophils % 1.7 % (38.7-73.9); Red Blood Count 3.15 MC/CUMM (3.8-5.5)
[2020-11-02 05:05] LABS: Hemoglobin 7.9 GM/DL (12.0-16.0); Platelet Count 44 T/CUMM (130-400); White Blood Count 17.3 T/CUMM (4-12)
[2020-11-02 05:14] LABS: Osmolality,Calculated 283.8 MOS/KG (273-304); Potassium 3.4 MMOL/L (3.5-5.1)
[2020-11-02 05:20] LABS: Atypical Lymphocytes Few; Hypochromasia 1+; Lymphocytes 93 % (20-55); Microcytosis 1+; Platelet Estimate Decreased; Segmented Neutrophils 2 % (50-85); Smudge Cells Few; Total Cells Counted 100
[2020-11-02] MEDS: INSULIN REGULAR 100 UNIT/ML SUBCUT SCH ×2 (07:08→11:17)
[2020-11-02] MEDS: LINACLOTIDE 145 MCG CAPSULE PO SCH (08:01)
[2020-11-02] MEDS: DOCUSATE SODIUM 100 MG CAPSULE PO SCH (08:01)
[2020-11-02] MEDS: LUBIPROSTONE 8 MCG CAPSULE PO SCH (08:01)
[2020-11-02] MEDS: POLYETHYLENE GLYCOL POWDER 17 GM PACK PO SCH (08:02)
[2020-11-02] MEDS: CHOLECALCIFEROL 1,000 UNIT TABLET PO SCH (08:37)
[2020-11-02] MEDS: valACYclovir 500 MG TABLET PO SCH (08:37)
[2020-11-02] MEDS: PANTOPRAZOLE 40 MG TABLET PO SCH (08:38)
[2020-11-02] MEDS: TRIFLURIDINE 1% OPH SOLN 7.5 ML BOTTLE BOTH EYES SCH ×2 (08:38→13:32)
[2020-11-02] MEDS: POTASSIUM CHLORIDE 20 MEQ TABLET PO SCH (08:38)
[2020-11-02] MEDS: FUROSEMIDE 20 MG/2 ML VIAL IV SCH (08:38)
[2020-11-02] MEDS: MUPIROCIN 2% OINT 22 GM TUBE TOP SCH (08:39)
[2020-11-02] MEDS ORDERED: DOXYCYCLINE HYCLATE 100 MG CAPSULE PO SCH (09:00)
[2020-11-02 12:13] VITALS: BP 104/45
== END 2020-11-02 13:40 | disposition home or self-care (01) | DRG 606 ==
LOC: EDUNIT# → N.ED 19:14 → N.EDINP 10-29 01:01 → SUATTDRO 10-29 01:01 → N.4E 10-29 01:41 → N.3E 10-29 02:19
PROVIDERS: ADMIT Internal Medicine; ATTEND Hospitalist

== ENCOUNTER 2021-02-26 06:55 | Inpatient (IN) ==
[2021-02-26 08:20] LABS: Albumin 2.8 G/DL (3.4-5.0); Bilirubin,Total 0.6 MG/DL (0.20-1.00); Calcium 8.2 MG/DL (8.5-10.1); Osmolality,Calculated 301.1 MOS/KG (273-304); Potassium 3.1 MMOL/L (3.5-5.1); Total Protein 5.2 G/DL (6.4-8.2)
[2021-02-26 08:45] LABS: Basophils # 0.2 10*3/uL (0.0-0.2); Basophils % 0.2 % (0.0-0.8); Eosinophils # 0.2 10*3/uL (0.0-0.87); Eosinophils % 0.2 % (0.00-10.9); Hematocrit 20.5 VOL% (35.7-47.0); Immature Granulocytes % 0.9 %; Lymphocytes # 58.8 10*3/uL (1.4-4.0); Lymphocytes % 57.7 % (21.3-54.2); Mean Corpuscular HGB Conc 29.3 GM/DL (32-36); Monocytes % 37.3 % (1.7-12.7); Neutrophils % 3.7 % (38.7-73.9); Red Blood Count 2.53 MC/CUMM (3.8-5.5); Red Cell Distribution Width 27.3 % (9.3-17.3)
[2021-02-26 08:48] LABS: Platelet Count 19 T/CUMM (130-400)
[2021-02-26 09:02] LABS: Atypical Lymphocytes Moderate; Hypochromasia 1+; Lymphocytes 72 % (20-55); Microcytosis 1+; Platelet Estimate Decreased; Segmented Neutrophils 16 % (50-85); Smudge Cells Moderate; Total Cells Counted 100
[2021-02-26] MEDS ORDERED: SODIUM CHLORIDE 0.9% 1,000 ML IV STA (09:10)
[2021-02-26] MEDS ORDERED: GLUCAGON 1 MG VIAL IM PRN ×2 (09:16)
[2021-02-26] MEDS ORDERED: DEXTROSE 50% 25 GM/50 ML VIAL IV PRN ×2 (09:16)
[2021-02-26] MEDS ORDERED: ONDANSETRON 4 MG/2 ML VIAL IV PRN (09:16)
[2021-02-26] MEDS ORDERED: SODIUM CHLORIDE 0.9% 1,000 ML IV PRN (09:24)
[2021-02-26 09:56] LABS: Folate 3.41 NG/ML (5.38-24.0)
[2021-02-26 10:06] LABS: % Iron Saturation 93.6 % (18-50); Ferritin 1405.9 ng/mL (8-252)
[2021-02-26 11:58] LABS: Hematocrit 20.2 VOL% (35.7-47.0)
[2021-02-26] MEDS: PANTOPRAZOLE 40 MG VIAL IV SCH ×2 (12:57→21:16)
[2021-02-26 14:50] LABS: Basophils # 0.2 10*3/uL (0.0-0.2); Basophils % 0.2 % (0.0-0.8); Eosinophils # 0.2 10*3/uL (0.0-0.87); Eosinophils % 0.2 % (0.00-10.9); Hematocrit 18.5 VOL% (35.7-47.0); Immature Granulocytes % 0.9 %; Lymphocytes # 58.4 10*3/uL (1.4-4.0); Mean Corpuscular HGB Conc 30.3 GM/DL (32-36); Mean Corpuscular Volume 81.5 FL (87-102); Monocytes % 37.1 % (1.7-12.7); Neutrophils % 3.6 % (38.7-73.9); Red Blood Count 2.27 MC/CUMM (3.8-5.5); Red Cell Distribution Width 27.6 % (9.3-17.3)
[2021-02-26 15:00] LABS: INR 1.1; Partial Thromboplastin Time 28.5 SECS (23.8-32.1)
[2021-02-26 15:10] LABS: Hemoglobin 5.6 GM/DL (12.0-16.0); Platelet Count 16 T/CUMM (130-400); White Blood Count 100.7 T/CUMM (4-12)
[2021-02-26] MEDS: TRIFLURIDINE 1% OPH SOLN 7.5 ML BOTTLE BOTH EYES SCH ×2 (17:38→23:48)
[2021-02-26 23:25] LABS: Hematocrit 26.4 VOL% (35.7-47.0)
[2021-02-26 23:27] LABS: Hemoglobin 8.2 GM/DL (12.0-16.0)
[2021-02-27 06:14] LABS: Basophils # 0.3 10*3/uL (0.0-0.2); Basophils % 0.2 % (0.0-0.8); Eosinophils # 0.2 10*3/uL (0.0-0.87); Eosinophils % 0.2 % (0.00-10.9); Hematocrit 27.2 VOL% (35.7-47.0); Hemoglobin 8.4 GM/DL (12.0-16.0); Immature Granulocytes % 0.9 %; Immature Granulocytes Absolute 0.96 #; Lymphocytes % 55.7 % (21.3-54.2); Mean Corpuscular HGB Conc 30.9 GM/DL (32-36); Mean Corpuscular Volume 84.7 FL (87-102); Monocytes % 39.3 % (1.7-12.7); Neutrophils % 3.7 % (38.7-73.9); Red Blood Count 3.21 MC/CUMM (3.8-5.5); Red Cell Distribution Width 22.9 % (9.3-17.3)
[2021-02-27 06:41] LABS: Platelet Count 31 T/CUMM (130-400); White Blood Count 104.2 T/CUMM (4-12)
[2021-02-27 06:47] LABS: Hypochromasia Slight; Lymphocytes 71 % (20-55); Microcytosis Slight; Platelet Estimate Decreased; Segmented Neutrophils 4 % (50-85); Total Cells Counted 100
[2021-02-27 06:48] LABS: Smudge Cells Moderate
[2021-02-27 06:50] LABS: Albumin 2.6 G/DL (3.4-5.0); Bilirubin,Total 1.4 MG/DL (0.20-1.00); Calcium 8.1 MG/DL (8.5-10.1); Osmolality,Calculated 294.4 MOS/KG (273-304); Potassium 3.4 MMOL/L (3.5-5.1); Total Protein 5.2 G/DL (6.4-8.2)
[2021-02-27 07:09] LABS: Atypical Lymphocytes Moderate
[2021-02-27] MEDS ORDERED: diphenhydrAMINE CAP 50 MG CAPSULE PO ONE (07:50)
[2021-02-27] MEDS ORDERED: ACETAMINOPHEN 325 MG/10.15 ML UDCUP PO ONE (07:50)
[2021-02-27] MEDS ORDERED: DEXAMETHASONE INJ 20 MG in SODIUM CHLORIDE 0.9% 50 ML IV ONE (07:52)
[2021-02-27 08:04] LABS: Lymphocytes 73 % (20-55); Segmented Neutrophils 9 % (50-85); Total Cells Counted 100
[2021-02-27 08:05] LABS: Hypochromasia 1+; Microcytosis 2+; Platelet Estimate Decreased; Smudge Cells Moderate
[2021-02-27 08:08] LABS: Atypical Lymphocytes Moderate
[2021-02-27] MEDS: POTASSIUM CHLORIDE RIDER 10 MEQ/100 ML PREMIX IV PRN ×2 (08:09→09:20)
[2021-02-27 08:10] LABS: Ovalocytes Few
[2021-02-27] MEDS: TRIFLURIDINE 1% OPH SOLN 7.5 ML BOTTLE BOTH EYES SCH ×4 (09:14→20:59)
[2021-02-27] MEDS: PANTOPRAZOLE 40 MG VIAL IV SCH (09:14)
[2021-02-27] MEDS ORDERED: DEXAMETHASONE INJ 40 MG in SODIUM CHLORIDE 0.9% 50 ML IV ONE (09:30)
[2021-02-27] MEDS ORDERED: riTUXimab 750 MG in SODIUM CHLORIDE 0.9% 675 ML IV ONE (10:00)
[2021-02-27] MEDS ORDERED: RITUXIMAB-ABBS 500 MG, RITUXIMAB-ABBS 250 MG in SODIUM CHLORIDE 0.9% 675 ML IV ONE (10:30)
[2021-02-27] MEDS ORDERED: DEXTROSE 5% 1,000 ML IV SCH (13:00)
[2021-02-27] MEDS ORDERED: SODIUM CHLORIDE 0.9% 1,000 ML IV SCH (23:00)
[2021-02-28] MEDS: cefTRIAXone 1,000 MG in SODIUM CHLORIDE 0.9% 100 ML IV SCH (00:23)
[2021-02-28] MEDS: DOXYCYCLINE HYCLATE INJ 100 MG in SODIUM CHLORIDE 0.9% 100 ML IV SCH ×2 (01:06→13:35)
[2021-02-28 04:59] LABS: Basophils # 0.2 10*3/uL (0.0-0.2); Basophils % 0.2 % (0.0-0.8); Hematocrit 27.2 VOL% (35.7-47.0); Hemoglobin 8.6 GM/DL (12.0-16.0); Immature Granulocytes % 0.9 %; Lymphocytes # 51.7 10*3/uL (1.4-4.0); Mean Corpuscular HGB Conc 31.6 GM/DL (32-36); Mean Corpuscular Volume 82.7 FL (87-102); Monocytes % 40.1 % (1.7-12.7); Neutrophils % 5.8 % (38.7-73.9); Red Blood Count 3.29 MC/CUMM (3.8-5.5); Red Cell Distribution Width 23.5 % (9.3-17.3)
[2021-02-28 05:00] LABS: Immature Granulocytes Absolute 0.85 #; NRBC # 0.03 10*3/uL
[2021-02-28 05:16] LABS: Calcium 7.9 MG/DL (8.5-10.1); Osmolality,Calculated 304.4 MOS/KG (273-304); Potassium 3.5 MMOL/L (3.5-5.1)
[2021-02-28 05:26] LABS: Albumin 2.4 G/DL (3.4-5.0); Bilirubin,Total 0.5 MG/DL (0.20-1.00); Calcium 7.8 MG/DL (8.5-10.1); Osmolality,Calculated 306.3 MOS/KG (273-304); Potassium 3.6 MMOL/L (3.5-5.1); Total Protein 5.3 G/DL (6.4-8.2); Uric Acid 11.5 MG/DL (2.6-6.0)
[2021-02-28 06:04] LABS: White Blood Count 97.5 T/CUMM (4-12)
[2021-02-28 06:05] LABS: Platelet Count 20 T/CUMM (130-400)
[2021-02-28 06:25] LABS: Atypical Lymphocytes 2+; Band Neutrophils 9 % (0-10); Lymphocytes 81 % (20-55); Nucleated Red Blood Cells 1 (0-5); Segmented Neutrophils 2 % (50-85); Smudge Cells 2+; Total Cells Counted 100
[2021-02-28 06:26] LABS: Anisocytosis 2+; Burr Cells Few
[2021-02-28] MEDS: TRIFLURIDINE 1% OPH SOLN 7.5 ML BOTTLE BOTH EYES SCH ×3 (10:27→20:26)
[2021-02-28] MEDS: PANTOPRAZOLE 40 MG TABLET PO SCH (10:27)
[2021-02-28] MEDS: allopurinoL 300 MG TABLET PO SCH (10:27)
[2021-02-28] MEDS: SODIUM BICARB INJ 50 MEQ in DEXTROSE 5% 1,000 ML IV SCH ×2 (10:27→22:26)
[2021-03-01] MEDS: cefTRIAXone 1,000 MG in SODIUM CHLORIDE 0.9% 100 ML IV SCH (00:46)
[2021-03-01] MEDS: DOXYCYCLINE HYCLATE INJ 100 MG in SODIUM CHLORIDE 0.9% 100 ML IV SCH ×2 (01:30→16:10)
[2021-03-01 06:34] LABS: Basophils # 0.1 10*3/uL (0.0-0.2); Basophils % 0.2 % (0.0-0.8); Eosinophils # 0.2 10*3/uL (0.0-0.87); Eosinophils % 0.6 % (0.00-10.9); Hematocrit 26.1 VOL% (35.7-47.0); Hemoglobin 8.2 GM/DL (12.0-16.0); Immature Granulocytes % 1.6 %; Immature Granulocytes Absolute 0.47 #; Lymphocytes # 15.5 10*3/uL (1.4-4.0); Mean Corpuscular HGB Conc 31.4 GM/DL (32-36); Mean Corpuscular Volume 82.9 FL (87-102); Monocytes % 33.3 % (1.7-12.7); Neutrophils % 11.3 % (38.7-73.9); Red Blood Count 3.15 MC/CUMM (3.8-5.5); Red Cell Distribution Width 23.9 % (9.3-17.3); White Blood Count 29.3 T/CUMM (4-12)
[2021-03-01 06:37] LABS: Platelet Count 14 T/CUMM (130-400)
[2021-03-01 07:15] LABS: Albumin 2.3 G/DL (3.4-5.0); Bilirubin,Total 0.4 MG/DL (0.20-1.00); Calcium 7.6 MG/DL (8.5-10.1); Osmolality,Calculated 296.7 MOS/KG (273-304); Potassium 3.2 MMOL/L (3.5-5.1); Uric Acid 10.6 MG/DL (2.6-6.0)
[2021-03-01 07:26] LABS: Atypical Lymphocytes 1+; Band Neutrophils 10 % (0-10); Lymphocytes 77 % (20-55); Metamyelocytes 1 %; Platelet Estimate Decreased; Segmented Neutrophils 5 % (50-85); Smudge Cells Many; Total Cells Counted 100
[2021-03-01 07:27] LABS: Anisocytosis 1+; Ovalocytes Few; Poikilocytosis Slight
[2021-03-01] MEDS ORDERED: SODIUM CHLORIDE 0.9% 1,000 ML IV PRN (08:29)
[2021-03-01] MEDS: allopurinoL 300 MG TABLET PO SCH (10:44)
[2021-03-01] MEDS: PANTOPRAZOLE 40 MG TABLET PO SCH (10:44)
[2021-03-01] MEDS: TRIFLURIDINE 1% OPH SOLN 7.5 ML BOTTLE BOTH EYES SCH (14:43)
[2021-03-01] MEDS: SODIUM BICARB INJ 50 MEQ in DEXTROSE 5% 1,000 ML IV SCH ×2 (14:45→22:51)
[2021-03-02] MEDS: cefTRIAXone 1,000 MG in SODIUM CHLORIDE 0.9% 100 ML IV SCH (01:13)
[2021-03-02 06:32] LABS: Basophils # 0.1 10*3/uL (0.0-0.2); Basophils % 0.3 % (0.0-0.8); Eosinophils # 0.2 10*3/uL (0.0-0.87); Eosinophils % 0.7 % (0.00-10.9); Hematocrit 33.8 VOL% (35.7-47.0); Hemoglobin 10.8 GM/DL (12.0-16.0); Immature Granulocytes % 1.2 %; Immature Granulocytes Absolute 0.36 #; Lymphocytes # 15.7 10*3/uL (1.4-4.0); Lymphocytes % 54.4 % (21.3-54.2); Mean Corpuscular Volume 85.1 FL (87-102); Monocytes % 29.6 % (1.7-12.7); Neutrophils % 13.8 % (38.7-73.9); Red Blood Count 3.97 MC/CUMM (3.8-5.5); Red Cell Distribution Width 21.2 % (9.3-17.3); White Blood Count 28.9 T/CUMM (4-12)
[2021-03-02 06:47] LABS: Platelet Count 21 T/CUMM (130-400)
[2021-03-02 06:53] LABS: Anisocytosis 1+; Atypical Lymphocytes 1+; Band Neutrophils 7 % (0-10); Lymphocytes 80 % (20-55); Metamyelocytes 1 %; Platelet Estimate Decreased; Segmented Neutrophils 8 % (50-85); Smudge Cells Many; Total Cells Counted 100
[2021-03-02 06:54] LABS: Ovalocytes Few; Poikilocytosis Slight
[2021-03-02 07:02] LABS: Albumin 2.4 G/DL (3.4-5.0); Bilirubin,Total 0.9 MG/DL (0.20-1.00); Calcium 7.7 MG/DL (8.5-10.1); Osmolality,Calculated 292.7 MOS/KG (273-304); Potassium 3.3 MMOL/L (3.5-5.1); Total Protein 5.4 G/DL (6.4-8.2); Uric Acid 7.9 MG/DL (2.6-6.0)
[2021-03-02] MEDS: allopurinoL 300 MG TABLET PO SCH (09:22)
[2021-03-02] MEDS: PANTOPRAZOLE 40 MG TABLET PO SCH (09:22)
[2021-03-02] MEDS: SODIUM BICARB INJ 50 MEQ in DEXTROSE 5% 1,000 ML IV SCH ×2 (09:58→21:10)
[2021-03-03] MEDS: cefTRIAXone 1,000 MG in SODIUM CHLORIDE 0.9% 100 ML IV SCH (01:50)
[2021-03-03 04:21] LABS: Basophils # 0.1 10*3/uL (0.0-0.2); Basophils % 0.3 % (0.0-0.8); Eosinophils # 0.1 10*3/uL (0.0-0.87); Eosinophils % 0.6 % (0.00-10.9); Hematocrit 33.2 VOL% (35.7-47.0); Hemoglobin 10.7 GM/DL (12.0-16.0); Immature Granulocytes % 1.5 %; Immature Granulocytes Absolute 0.31 #; Lymphocytes # 11.4 10*3/uL (1.4-4.0); Lymphocytes % 55.4 % (21.3-54.2); Mean Corpuscular HGB Conc 32.2 GM/DL (32-36); Mean Corpuscular Volume 84.3 FL (87-102); Monocytes % 25.8 % (1.7-12.7); Neutrophils % 16.4 % (38.7-73.9); Red Blood Count 3.94 MC/CUMM (3.8-5.5); Red Cell Distribution Width 21.2 % (9.3-17.3); White Blood Count 20.5 T/CUMM (4-12)
[2021-03-03 04:26] LABS: Platelet Count 19 T/CUMM (130-400)
[2021-03-03 04:34] LABS: Albumin 2.2 G/DL (3.4-5.0); Bilirubin,Total 1.5 MG/DL (0.20-1.00); Calcium 7.5 MG/DL (8.5-10.1); Osmolality,Calculated 282.4 MOS/KG (273-304); Potassium 3.1 MMOL/L (3.5-5.1); Total Protein 5.1 G/DL (6.4-8.2); Uric Acid 6.1 MG/DL (2.6-6.0)
[2021-03-03 05:38] LABS: Atypical Lymphocytes Moderate; Band Neutrophils 2 % (0-10); Eosinophils 1 % (0-10); Lymphocytes 66 % (20-55); Segmented Neutrophils 23 % (50-85); Smudge Cells Moderate; Total Cells Counted 100
[2021-03-03 05:39] LABS: Hypochromasia 1+; Microcytosis 1+; Ovalocytes Slight
[2021-03-03 05:40] LABS: Platelet Estimate Decreased
[2021-03-03] MEDS: SODIUM BICARB INJ 50 MEQ in DEXTROSE 5% 1,000 ML IV SCH (06:35)
[2021-03-03] MEDS ORDERED: diphenhydrAMINE CAP 50 MG CAPSULE PO ONE (08:48)
[2021-03-03] MEDS ORDERED: ACETAMINOPHEN 325 MG TABLET PO ONE (08:48)
[2021-03-03] MEDS ORDERED: SODIUM CHLORIDE 0.9% 1,000 ML IV PRN (08:48)
[2021-03-03] MEDS ORDERED: IMMUNE GLOBULIN 10% 20 GM, IMMUNE GLOBULIN 10% 10 GM in PREMIX 1 EACH IV ONE (09:00)
[2021-03-03] MEDS: allopurinoL 300 MG TABLET PO SCH (09:41)
[2021-03-03] MEDS: PANTOPRAZOLE 40 MG TABLET PO SCH (09:41)
[2021-03-03] MEDS ORDERED: FUROSEMIDE 40 MG/4 ML VIAL IV ONE (13:28)
[2021-03-03] MEDS: POTASSIUM CHLORIDE RIDER 20 MEQ/100 ML PREMIX IV PRN (23:20)
[2021-03-04] MEDS: cefTRIAXone 1,000 MG in SODIUM CHLORIDE 0.9% 100 ML IV SCH (01:10)
[2021-03-04] MEDS: POTASSIUM CHLORIDE RIDER 20 MEQ/100 ML PREMIX IV PRN ×2 (01:41→20:20)
[2021-03-04 06:27] LABS: Basophils # 0.1 10*3/uL (0.0-0.2); Basophils % 0.3 % (0.0-0.8); Eosinophils # 0.2 10*3/uL (0.0-0.87); Eosinophils % 0.8 % (0.00-10.9); Hematocrit 33.4 VOL% (35.7-47.0); Hemoglobin 10.7 GM/DL (12.0-16.0); Immature Granulocytes % 1.2 %; Immature Granulocytes Absolute 0.26 #; Lymphocytes # 11.6 10*3/uL (1.4-4.0); Lymphocytes % 54.3 % (21.3-54.2); Mean Corpuscular Volume 84.8 FL (87-102); Monocytes % 26.2 % (1.7-12.7); Neutrophils % 17.2 % (38.7-73.9); Red Blood Count 3.94 MC/CUMM (3.8-5.5); Red Cell Distribution Width 21.6 % (9.3-17.3); White Blood Count 21.3 T/CUMM (4-12)
[2021-03-04 06:33] LABS: Platelet Count 32 T/CUMM (130-400)
[2021-03-04 06:51] LABS: Albumin 2.3 G/DL (3.4-5.0); Bilirubin,Total 0.9 MG/DL (0.20-1.00); Calcium 7.9 MG/DL (8.5-10.1); Osmolality,Calculated 280.3 MOS/KG (273-304); Potassium 3.6 MMOL/L (3.5-5.1); Uric Acid 4.7 MG/DL (2.6-6.0)
[2021-03-04 06:53] LABS: Atypical Lymphocytes Moderate; Lymphocytes 53 % (20-55); Segmented Neutrophils 34 % (50-85); Smudge Cells Moderate; Total Cells Counted 100
[2021-03-04 06:54] LABS: Hypochromasia 1+; Microcytosis 1+; Ovalocytes Slight; Platelet Estimate Decreased
[2021-03-04] MEDS ORDERED: FUROSEMIDE 40 MG/4 ML VIAL IV ONE (07:52)
[2021-03-04] MEDS: allopurinoL 300 MG TABLET PO SCH (10:08)
[2021-03-04] MEDS: PANTOPRAZOLE 40 MG TABLET PO SCH (10:08)
[2021-03-04] MEDS ORDERED: FUROSEMIDE 20 MG/2 ML VIAL IV ONE (15:00)
[2021-03-05] MEDS: cefTRIAXone 1,000 MG in SODIUM CHLORIDE 0.9% 100 ML IV SCH (00:50)
[2021-03-05 06:12] LABS: Basophils # 0.1 10*3/uL (0.0-0.2); Basophils % 0.3 % (0.0-0.8); Eosinophils # 0.2 10*3/uL (0.0-0.87); Eosinophils % 0.7 % (0.00-10.9); Hematocrit 32.1 VOL% (35.7-47.0); Hemoglobin 10.4 GM/DL (12.0-16.0); Immature Granulocytes % 1.1 %; Immature Granulocytes Absolute 0.24 #; Lymphocytes # 11.8 10*3/uL (1.4-4.0); Mean Corpuscular HGB Conc 32.4 GM/DL (32-36); Mean Corpuscular Volume 84.5 FL (87-102); Monocytes % 29.1 % (1.7-12.7); Neutrophils % 15.8 % (38.7-73.9); Red Cell Distribution Width 22.1 % (9.3-17.3); White Blood Count 22.2 T/CUMM (4-12)
[2021-03-05 06:16] LABS: Platelet Count 27 T/CUMM (130-400)
[2021-03-05 06:18] LABS: Albumin 2.2 G/DL (3.4-5.0); Bilirubin,Total 1.4 MG/DL (0.20-1.00); Calcium 8.2 MG/DL (8.5-10.1); Osmolality,Calculated 273.7 MOS/KG (273-304); Potassium 3.8 MMOL/L (3.5-5.1); Total Protein 5.9 G/DL (6.4-8.2); Uric Acid 4.5 MG/DL (2.6-6.0)
[2021-03-05 06:44] LABS: Atypical Lymphocytes Moderate; Band Neutrophils 3 % (0-10); Eosinophils 3 % (0-10); Hypochromasia 1+; Lymphocytes 56 % (20-55); Microcytosis 1+; Segmented Neutrophils 34 % (50-85); Smudge Cells Moderate; Total Cells Counted 100
[2021-03-05 06:45] LABS: Ovalocytes Slight; Platelet Estimate Decreased
[2021-03-05] MEDS ORDERED: FUROSEMIDE 40 MG/4 ML VIAL IV ONE (08:17)
[2021-03-05] MEDS: allopurinoL 300 MG TABLET PO SCH (09:01)
[2021-03-05] MEDS: PANTOPRAZOLE 40 MG TABLET PO SCH (09:01)
[2021-03-05 12:46] VITALS: BP 116/55
== END 2021-03-05 14:00 | disposition home or self-care (01) | DRG 840 ==
LOC: EDBD → EDUNIT# → N.ED 06:55 → N.EDINP 09:08 → SUATTDRO 09:08 → N.2W 09:55
PROVIDERS: ADMIT Internal Medicine; ATTEND Internal Medicine

== ENCOUNTER 2021-03-07 11:10 | Inpatient (IN) ==
[2021-03-07 12:14] LABS: Basophils # 0.1 10*3/uL (0.0-0.2); Basophils % 0.4 % (0.0-0.8); Eosinophils # 0.1 10*3/uL (0.0-0.87); Eosinophils % 0.3 % (0.00-10.9); Hematocrit 31.5 VOL% (35.7-47.0); Immature Granulocytes % 1.1 %; Immature Granulocytes Absolute 0.26 #; Lymphocytes # 13.9 10*3/uL (1.4-4.0); Lymphocytes % 60.4 % (21.3-54.2); Mean Corpuscular HGB Conc 31.7 GM/DL (32-36); Mean Corpuscular Volume 85.6 FL (87-102); Monocytes % 21.3 % (1.7-12.7); Neutrophils % 16.5 % (38.7-73.9); Red Blood Count 3.68 MC/CUMM (3.8-5.5); Red Cell Distribution Width 22.2 % (9.3-17.3); White Blood Count 23.1 T/CUMM (4-12)
[2021-03-07 12:17] LABS: Platelet Count 30 T/CUMM (130-400)
[2021-03-07 12:40] LABS: Albumin 2.4 G/DL (3.4-5.0); Band Neutrophils 1 % (0-10); Bilirubin,Total 0.6 MG/DL (0.20-1.00); Calcium 8.3 MG/DL (8.5-10.1); Eosinophils 2 % (0-10); Lymphocytes 72 % (20-55); Osmolality,Calculated 282.4 MOS/KG (273-304); Potassium 3.6 MMOL/L (3.5-5.1); Segmented Neutrophils 17 % (50-85); Total Cells Counted 100
[2021-03-07 12:41] LABS: Atypical Lymphocytes Moderate; Hypochromasia 1+; Smudge Cells Few
[2021-03-07 12:42] LABS: Anisocytosis 1+; Microcytosis 1+; Ovalocytes Slight; Platelet Estimate Decreased
[2021-03-07] MEDS ORDERED: ALBUTEROL 2.5 MG/3 ML NEB RESP TX PRN (15:07)
[2021-03-07] MEDS ORDERED: DEXTROSE 50% 25 GM/50 ML VIAL IV PRN (15:07)
[2021-03-07] MEDS ORDERED: GLUCAGON 1 MG VIAL IM PRN (15:07)
[2021-03-07] MEDS ORDERED: hydrALAZINE 20 MG/1 ML VIAL IV PRN (15:07)
[2021-03-07] MEDS ORDERED: ACETAMINOPHEN 325 MG TABLET PO PRN (15:07)
[2021-03-07] MEDS ORDERED: guaiFENesin/DM ER 600-30 MG TABLET PO PRN (15:07)
[2021-03-07] MEDS ORDERED: ONDANSETRON 4 MG/2 ML VIAL IV PRN (15:07)
[2021-03-07] MEDS: INSULIN REGULAR 100 UNIT/ML SUBCUT SCH ×2 (17:37→21:41)
[2021-03-07] MEDS: FUROSEMIDE 40 MG/4 ML VIAL IV SCH (17:53)
[2021-03-08 05:39] LABS: Basophils # 0.1 10*3/uL (0.0-0.2); Basophils % 0.4 % (0.0-0.8); Eosinophils # 0.1 10*3/uL (0.0-0.87); Eosinophils % 0.3 % (0.00-10.9); Hematocrit 30.3 VOL% (35.7-47.0); Hemoglobin 9.4 GM/DL (12.0-16.0); Immature Granulocytes Absolute 0.27 #; Lymphocytes # 15.9 10*3/uL (1.4-4.0); Lymphocytes % 56.7 % (21.3-54.2); Mean Corpuscular Volume 86.1 FL (87-102); Monocytes % 27.4 % (1.7-12.7); Neutrophils % 14.2 % (38.7-73.9); Red Blood Count 3.52 MC/CUMM (3.8-5.5); Red Cell Distribution Width 22.5 % (9.3-17.3)
[2021-03-08 05:52] LABS: Albumin 2.3 G/DL (3.4-5.0); Bilirubin,Total 0.8 MG/DL (0.20-1.00); Calcium 8.3 MG/DL (8.5-10.1); Osmolality,Calculated 281.3 MOS/KG (273-304); Potassium 3.5 MMOL/L (3.5-5.1); Total Protein 5.8 G/DL (6.4-8.2)
[2021-03-08 05:55] LABS: Platelet Count 32 T/CUMM (130-400)
[2021-03-08 06:38] LABS: Atypical Lymphocytes Moderate; Band Neutrophils 4 % (0-10); Eosinophils 1 % (0-10); Lymphocytes 69 % (20-55); Segmented Neutrophils 14 % (50-85); Total Cells Counted 100
[2021-03-08 06:39] LABS: Hypochromasia 1+; Microcytosis 1+; Ovalocytes Slight; Platelet Estimate Decreased; Smudge Cells Few
[2021-03-08] MEDS: INSULIN REGULAR 100 UNIT/ML SUBCUT SCH ×4 (08:18→23:15)
[2021-03-08] MEDS: FUROSEMIDE 40 MG/4 ML VIAL IV SCH ×2 (09:13→17:38)
[2021-03-08] MEDS: PANTOPRAZOLE 40 MG TABLET PO SCH (09:13)
[2021-03-08 20:08] LABS: Bacteria,Urine Occasional /HPF (Few); Bilirubin,Urine Negative (Negative); Blood, Urine Negative (Negative); Glucose,Urine (UA) Negative (Negative); Hyaline Casts,Urine 1 /LPF (0-3); Ketones,Urine Negative (Negative); Nitrite,Urine Negative (Negative); Protein,Urine Negative; RBC,Urine 2 /HPF (0-4); Squamous Epithelial Cell,Urine Occasional /HPF (0-10); Urine Appearance CLEAR (Clear); Urine Color Yellow (Yellow); Urine Specific Gravity 1.008 (1.001-1.035); Urine Urobilinogen < 2.0 EU/DL (0.2-1.0)
[2021-03-09 06:00] LABS: Basophils # 0.1 10*3/uL (0.0-0.2); Basophils % 0.3 % (0.0-0.8); Eosinophils # 0.1 10*3/uL (0.0-0.87); Eosinophils % 0.4 % (0.00-10.9); Hematocrit 31.4 VOL% (35.7-47.0); Hemoglobin 9.7 GM/DL (12.0-16.0); Immature Granulocytes % 1.1 %; Immature Granulocytes Absolute 0.34 #; Lymphocytes # 16.6 10*3/uL (1.4-4.0); Lymphocytes % 56.1 % (21.3-54.2); Mean Corpuscular HGB Conc 30.9 GM/DL (32-36); Mean Corpuscular Volume 85.1 FL (87-102); Monocytes % 27.7 % (1.7-12.7); Neutrophils % 14.4 % (38.7-73.9); Red Blood Count 3.69 MC/CUMM (3.8-5.5); Red Cell Distribution Width 22.4 % (9.3-17.3); White Blood Count 29.6 T/CUMM (4-12)
[2021-03-09 06:06] LABS: Platelet Count 36 T/CUMM (130-400)
[2021-03-09 06:26] LABS: Calcium 8.5 MG/DL (8.5-10.1); Osmolality,Calculated 279.4 MOS/KG (273-304); Potassium 3.3 MMOL/L (3.5-5.1)
[2021-03-09 06:27] LABS: Albumin 2.4 G/DL (3.4-5.0); Atypical Lymphocytes Moderate; Band Neutrophils 3 % (0-10); Bilirubin,Total 1.5 MG/DL (0.20-1.00); Calcium 8.6 MG/DL (8.5-10.1); Eosinophils 1 % (0-10); Hypochromasia 1+; Lymphocytes 75 % (20-55); Microcytosis 1+; Osmolality,Calculated 275.7 MOS/KG (273-304); Platelet Estimate Decreased; Potassium 3.3 MMOL/L (3.5-5.1); Segmented Neutrophils 19 % (50-85); Total Cells Counted 100; Total Protein 5.9 G/DL (6.4-8.2)
[2021-03-09 06:28] LABS: Smudge Cells Few
[2021-03-09] MEDS: FUROSEMIDE 40 MG/4 ML VIAL IV SCH ×2 (09:14→17:19)
[2021-03-09] MEDS: PANTOPRAZOLE 40 MG TABLET PO SCH (09:14)
[2021-03-09] MEDS: INSULIN REGULAR 100 UNIT/ML SUBCUT SCH ×4 (09:15→21:55)
[2021-03-09] MEDS: POTASSIUM CHLORIDE 20 MEQ TABLET PO PRN (10:21)
[2021-03-09 14:38] LABS: PT Patient Result 11.5 SECS (10.5-12.0)
[2021-03-09 14:43] LABS: Albumin 2.6 G/DL (3.4-5.0); Total Protein 6.6 G/DL (6.4-8.2)
[2021-03-09] MEDS ORDERED: LOPERAMIDE 2 MG CAPSULE PO PRN (16:43)
[2021-03-10 06:02] LABS: Basophils # 0.1 10*3/uL (0.0-0.2); Basophils % 0.4 % (0.0-0.8); Eosinophils # 0.1 10*3/uL (0.0-0.87); Eosinophils % 0.3 % (0.00-10.9); Hematocrit 31.1 VOL% (35.7-47.0); Immature Granulocytes % 1.1 %; Immature Granulocytes Absolute 0.35 #; Lymphocytes # 17.8 10*3/uL (1.4-4.0); Lymphocytes % 57.8 % (21.3-54.2); Mean Corpuscular HGB Conc 32.2 GM/DL (32-36); Mean Corpuscular Volume 85.2 FL (87-102); Monocytes % 27.4 % (1.7-12.7); Red Blood Count 3.65 MC/CUMM (3.8-5.5); Red Cell Distribution Width 22.5 % (9.3-17.3); White Blood Count 30.8 T/CUMM (4-12)
[2021-03-10 06:06] LABS: Platelet Count 37 T/CUMM (130-400)
[2021-03-10 06:20] LABS: Albumin 2.4 G/DL (3.4-5.0); Calcium 8.4 MG/DL (8.5-10.1); Osmolality,Calculated 278.4 MOS/KG (273-304); Potassium 3.4 MMOL/L (3.5-5.1)
[2021-03-10 06:22] LABS: Band Neutrophils 4 % (0-10); Hypochromasia Slight; Lymphocytes 61 % (20-55); Microcytosis Slight; Platelet Estimate Decreased; Segmented Neutrophils 23 % (50-85); Smudge Cells Few; Total Cells Counted 100
[2021-03-10] MEDS: INSULIN REGULAR 100 UNIT/ML SUBCUT SCH ×4 (08:10→22:31)
[2021-03-10] MEDS ORDERED: SODIUM CHLORIDE 0.9% 1,000 ML IV PRN (08:28)
[2021-03-10] MEDS: FUROSEMIDE 40 MG/4 ML VIAL IV SCH ×2 (11:10→21:48)
[2021-03-10] MEDS: PANTOPRAZOLE 40 MG TABLET PO SCH (11:10)
[2021-03-10] MEDS ORDERED: MAGNESIUM SULF RIDER 2 GM/50 ML PREMIX IV PRN (13:00)
[2021-03-10] MEDS ORDERED: MAGNESIUM SULF RIDER 4 GM/100 ML PREMIX IV PRN (13:00)
[2021-03-10] MEDS ORDERED: diphenhydrAMINE CAP 25 MG CAPSULE PO PRN (19:34)
[2021-03-10] MEDS ORDERED: LACTULOSE 20 GM/30 ML UDCUP PO PRN (19:34)
[2021-03-10] MEDS ORDERED: LOPERAMIDE 2 MG CAPSULE PO PRN (19:34)
[2021-03-10] MEDS ORDERED: ACETAMINOPHEN 325 MG TABLET PO PRN (19:34)
[2021-03-10] MEDS ORDERED: ALPRAZolam 0.25 MG TABLET PO PRN (19:34)
[2021-03-10] MEDS ORDERED: guaiFENesin 200 MG/10 ML UDCUP PO PRN (19:34)
[2021-03-10] MEDS ORDERED: MYLANTA/LIDO VISC 2:1 300 ML BOTTLE SWISH/SWAL PRN (19:34)
[2021-03-10] MEDS ORDERED: MAGNESIUM HYDROXIDE SUSP 30 ML UDCUP PO PRN (19:34)
[2021-03-10] MEDS ORDERED: ALUMINUM/MAGNES/SIMETH MAX STR 30 ML UDCUP PO PRN (19:34)
[2021-03-10] MEDS ORDERED: PROMETHAZINE INJ 25 MG in SODIUM CHLORIDE 0.9% 50 ML IV PRN (19:34)
[2021-03-10] MEDS ORDERED: traMADol 50 MG TABLET PO PRN (19:34)
[2021-03-10] MEDS ORDERED: TEMAZEPAM 7.5 MG CAPSULE PO PRN (19:34)
[2021-03-10] MEDS ORDERED: MYLANTA/LIDO VISC 2:1 300 ML BOTTLE SWISH/SPIT PRN (19:34)
[2021-03-10] MEDS ORDERED: ONDANSETRON 4 MG/2 ML VIAL IV PRN (19:34)
[2021-03-10] MEDS: MENTHOL/ZINC OXIDE OINT 71 GM JAR TOP SCH (21:50)
[2021-03-11 05:49] LABS: Basophils # 0.1 10*3/uL (0.0-0.2); Basophils % 0.4 % (0.0-0.8); Eosinophils # 0.1 10*3/uL (0.0-0.87); Eosinophils % 0.5 % (0.00-10.9); Hematocrit 30.8 VOL% (35.7-47.0); Hemoglobin 9.5 GM/DL (12.0-16.0); Immature Granulocytes % 1.3 %; Immature Granulocytes Absolute 0.39 #; Lymphocytes # 16.7 10*3/uL (1.4-4.0); Mean Corpuscular HGB Conc 30.8 GM/DL (32-36); Monocytes % 30.4 % (1.7-12.7); Neutrophils % 13.4 % (38.7-73.9); Platelet Count 59 T/CUMM (130-400); Red Blood Count 3.58 MC/CUMM (3.8-5.5); Red Cell Distribution Width 22.5 % (9.3-17.3); White Blood Count 30.9 T/CUMM (4-12)
[2021-03-11 06:16] LABS: Band Neutrophils 5 % (0-10); Lymphocytes 60 % (20-55); Segmented Neutrophils 24 % (50-85); Total Cells Counted 100
[2021-03-11 06:17] LABS: Albumin 2.5 G/DL (3.4-5.0); Atypical Lymphocytes Moderate; Bilirubin,Total 0.9 MG/DL (0.20-1.00); Calcium 8.5 MG/DL (8.5-10.1); Hypochromasia 1+; Microcytosis 1+; Osmolality,Calculated 281.3 MOS/KG (273-304); Potassium 3.3 MMOL/L (3.5-5.1); Smudge Cells Few; Total Protein 6.1 G/DL (6.4-8.2)
[2021-03-11 06:18] LABS: Ovalocytes Slight; Platelet Estimate Decreased
[2021-03-11] MEDS: INSULIN REGULAR 100 UNIT/ML SUBCUT SCH ×4 (07:57→21:15)
[2021-03-11] MEDS: FUROSEMIDE 40 MG/4 ML VIAL IV SCH ×2 (08:55→15:58)
[2021-03-11] MEDS: PANTOPRAZOLE 40 MG TABLET PO SCH (08:55)
[2021-03-11] MEDS: MENTHOL/ZINC OXIDE OINT 71 GM JAR TOP SCH ×2 (08:56→21:56)
[2021-03-11 10:36] LABS: Amylase,Body Fluid 18 U/L; Glucose,Pleural Fluid 104 MG/DL; LDH,Body Fluid 325 U/L; Total Protein,Body Fluid 3.8 G/DL; Triglycerides,Body Fluid 30 MG/DL
[2021-03-11 11:00] LABS: Lymphocytes,Pleural Fluid 88 %; Monocytes,Pleural Fluid 10 %; Neutrophils,Pleural Fluid 2 %; RBC,Pleural Fluid > 100000 T/CUMM
[2021-03-11] MEDS: POTASSIUM CHLORIDE 20 MEQ TABLET PO PRN ×2 (15:59→18:03)
[2021-03-12 05:02] LABS: Basophils # 0.1 10*3/uL (0.0-0.2); Basophils % 0.4 % (0.0-0.8); Eosinophils # 0.2 10*3/uL (0.0-0.87); Eosinophils % 0.5 % (0.00-10.9); Hematocrit 32.7 VOL% (35.7-47.0); Immature Granulocytes % 1.1 %; Immature Granulocytes Absolute 0.38 #; Lymphocytes # 19.7 10*3/uL (1.4-4.0); Lymphocytes % 56.9 % (21.3-54.2); Mean Corpuscular HGB Conc 30.6 GM/DL (32-36); Mean Corpuscular Volume 85.6 FL (87-102); Mean Platelet Volume 10.2 FL (9.6-12.0); Monocytes % 29.8 % (1.7-12.7); Neutrophils % 11.3 % (38.7-73.9); Platelet Count 64 T/CUMM (130-400); Red Blood Count 3.82 MC/CUMM (3.8-5.5); Red Cell Distribution Width 22.6 % (9.3-17.3); White Blood Count 34.6 T/CUMM (4-12)
[2021-03-12 05:26] LABS: Band Neutrophils 2 % (0-10); Hypochromasia 1+; Lymphocytes 76 % (20-55); Microcytosis 1+; Platelet Estimate Decreased; Segmented Neutrophils 16 % (50-85); Smudge Cells Few; Total Cells Counted 100
[2021-03-12 05:27] LABS: Albumin 2.6 G/DL (3.4-5.0); Atypical Lymphocytes Moderate; Bilirubin,Total 1.4 MG/DL (0.20-1.00); Calcium 8.6 MG/DL (8.5-10.1); Osmolality,Calculated 278.5 MOS/KG (273-304); Potassium 3.7 MMOL/L (3.5-5.1); Total Protein 6.3 G/DL (6.4-8.2)
[2021-03-12] MEDS ORDERED: RITUXIMAB-ABBS 500 MG, RITUXIMAB-ABBS 250 MG in SODIUM CHLORIDE 0.9% 675 ML IV ONE (10:00)
[2021-03-12] MEDS ORDERED: ACETAMINOPHEN 325 MG TABLET PO SCH (10:00)
[2021-03-12] MEDS ORDERED: diphenhydrAMINE CAP 50 MG CAPSULE PO SCH (10:00)
[2021-03-12] MEDS ORDERED: DEXAMETHASONE INJ 40 MG in SODIUM CHLORIDE 0.9% 50 ML IV ONE (10:00)
[2021-03-12] MEDS: PANTOPRAZOLE 40 MG TABLET PO SCH (10:05)
[2021-03-12] MEDS: FUROSEMIDE 40 MG/4 ML VIAL IV SCH ×2 (10:05→17:18)
[2021-03-12] MEDS: INSULIN REGULAR 100 UNIT/ML SUBCUT SCH ×4 (10:05→20:25)
[2021-03-12] MEDS: MENTHOL/ZINC OXIDE OINT 71 GM JAR TOP SCH ×2 (10:06→20:26)
[2021-03-13 04:31] LABS: Basophils # 0.1 10*3/uL (0.0-0.2); Basophils % 0.5 % (0.0-0.8); Eosinophils % 0.2 % (0.00-10.9); Hematocrit 32.2 VOL% (35.7-47.0); Hemoglobin 9.8 GM/DL (12.0-16.0); Immature Granulocytes % 1.9 %; Immature Granulocytes Absolute 0.34 #; Lymphocytes # 9.2 10*3/uL (1.4-4.0); Mean Corpuscular HGB Conc 30.4 GM/DL (32-36); Mean Corpuscular Volume 86.3 FL (87-102); Monocytes % 20.8 % (1.7-12.7); Neutrophils % 24.6 % (38.7-73.9); Platelet Count 57 T/CUMM (130-400); Red Blood Count 3.73 MC/CUMM (3.8-5.5); Red Cell Distribution Width 22.5 % (9.3-17.3); White Blood Count 17.7 T/CUMM (4-12)
[2021-03-13 04:57] LABS: Albumin 2.5 G/DL (3.4-5.0); Bilirubin,Total 0.7 MG/DL (0.20-1.00); Calcium 8.6 MG/DL (8.5-10.1); Osmolality,Calculated 290.4 MOS/KG (273-304); Potassium 3.8 MMOL/L (3.5-5.1); Total Protein 6.4 G/DL (6.4-8.2)
[2021-03-13 05:01] LABS: Atypical Lymphocytes Moderate; Band Neutrophils 1 % (0-10); Lymphocytes 65 % (20-55); Platelet Estimate Decreased; Segmented Neutrophils 28 % (50-85); Total Cells Counted 100
[2021-03-13 05:02] LABS: Hypochromasia Slight; Smudge Cells Few
[2021-03-13] MEDS: INSULIN REGULAR 100 UNIT/ML SUBCUT SCH ×4 (07:46→20:45)
[2021-03-13] MEDS: MENTHOL/ZINC OXIDE OINT 71 GM JAR TOP SCH ×2 (08:51→20:46)
[2021-03-13] MEDS: PANTOPRAZOLE 40 MG TABLET PO SCH (08:51)
[2021-03-13] MEDS: FUROSEMIDE 40 MG/4 ML VIAL IV SCH (08:51)
[2021-03-13] MEDS: DEXAMETHASONE 0.5 MG TABLET PO SCH (11:08)
[2021-03-13 12:06] LABS: M. Tuberculosis PCR Result Negative (Negative); M. Tuberculosis PCR Source PLEURAL FLUID
[2021-03-13] MEDS: LACTATED RINGERS 1,000 ML IV SCH (13:21)
[2021-03-14] MEDS: LACTATED RINGERS 1,000 ML IV SCH ×3 (01:15→20:49)
[2021-03-14 05:34] LABS: Basophils # 0.1 10*3/uL (0.0-0.2); Basophils % 0.4 % (0.0-0.8); Eosinophils # 0.3 10*3/uL (0.0-0.87); Eosinophils % 1.5 % (0.00-10.9); Hematocrit 31.2 VOL% (35.7-47.0); Hemoglobin 9.5 GM/DL (12.0-16.0); Immature Granulocytes % 2.6 %; Immature Granulocytes Absolute 0.53 #; Lymphocytes # 9.8 10*3/uL (1.4-4.0); Lymphocytes % 47.6 % (21.3-54.2); Mean Corpuscular HGB Conc 30.4 GM/DL (32-36); Mean Corpuscular Volume 86.2 FL (87-102); Monocytes % 25.1 % (1.7-12.7); Neutrophils % 22.8 % (38.7-73.9); Platelet Count 54 T/CUMM (130-400); Red Blood Count 3.62 MC/CUMM (3.8-5.5); Red Cell Distribution Width 22.5 % (9.3-17.3); White Blood Count 20.6 T/CUMM (4-12)
[2021-03-14 05:57] LABS: Albumin 2.5 G/DL (3.4-5.0); Bilirubin,Total 0.4 MG/DL (0.20-1.00); Calcium 8.4 MG/DL (8.5-10.1); Osmolality,Calculated 283.4 MOS/KG (273-304); Potassium 3.4 MMOL/L (3.5-5.1)
[2021-03-14 06:23] LABS: Atypical Lymphocytes 2+; Band Neutrophils 1 % (0-10); Hypochromasia 2+; Lymphocytes 76 % (20-55); Microcytosis Slight; Polychromasia Slight; Segmented Neutrophils 22 % (50-85); Total Cells Counted 100
[2021-03-14 06:24] LABS: Platelet Estimate Decreased
[2021-03-14] MEDS: LOPERAMIDE 2 MG CAPSULE PO PRN (09:23)
[2021-03-14] MEDS: DEXAMETHASONE 0.5 MG TABLET PO SCH (09:23)
[2021-03-14] MEDS: PANTOPRAZOLE 40 MG TABLET PO SCH (09:23)
[2021-03-14] MEDS: POTASSIUM CHLORIDE 20 MEQ TABLET PO PRN ×3 (09:24→11:30)
[2021-03-14] MEDS: INSULIN REGULAR 100 UNIT/ML SUBCUT SCH ×4 (10:17→21:33)
[2021-03-14] MEDS: MENTHOL/ZINC OXIDE OINT 71 GM JAR TOP SCH ×2 (11:29→20:49)
[2021-03-15] MEDS: LACTATED RINGERS 1,000 ML IV SCH ×3 (04:55→23:38)
[2021-03-15 05:52] LABS: Basophils % 0.3 % (0.0-0.8); Eosinophils # 0.2 10*3/uL (0.0-0.87); Eosinophils % 1.1 % (0.00-10.9); Hematocrit 28.9 VOL% (35.7-47.0); Hemoglobin 8.9 GM/DL (12.0-16.0); Immature Granulocytes % 2.8 %; Immature Granulocytes Absolute 0.36 #; Lymphocytes # 6.5 10*3/uL (1.4-4.0); Lymphocytes % 49.9 % (21.3-54.2); Mean Corpuscular HGB Conc 30.8 GM/DL (32-36); Mean Corpuscular Volume 85.5 FL (87-102); Monocytes % 22.2 % (1.7-12.7); Neutrophils % 23.7 % (38.7-73.9); Platelet Count 50 T/CUMM (130-400); Red Blood Count 3.38 MC/CUMM (3.8-5.5); Red Cell Distribution Width 22.5 % (9.3-17.3); White Blood Count 13.1 T/CUMM (4-12)
[2021-03-15 06:09] LABS: Albumin 2.3 G/DL (3.4-5.0); Bilirubin,Total 0.5 MG/DL (0.20-1.00); Calcium 8.3 MG/DL (8.5-10.1); Osmolality,Calculated 279.4 MOS/KG (273-304); Potassium 3.9 MMOL/L (3.5-5.1); Total Protein 5.4 G/DL (6.4-8.2)
[2021-03-15 06:50] LABS: Band Neutrophils 2 % (0-10); Eosinophils 2 % (0-10); Hypochromasia 2+; Lymphocytes 44 % (20-55); Metamyelocytes 1 %; Plasma Cells 1; Platelet Estimate Decreased; Segmented Neutrophils 27 % (50-85); Total Cells Counted 99
[2021-03-15] MEDS: INSULIN REGULAR 100 UNIT/ML SUBCUT SCH ×4 (08:09→21:36)
[2021-03-15] MEDS: PANTOPRAZOLE 40 MG TABLET PO SCH (09:14)
[2021-03-15] MEDS: DEXAMETHASONE 0.5 MG TABLET PO SCH (09:14)
[2021-03-15] MEDS: LOPERAMIDE 2 MG CAPSULE PO PRN (09:20)
[2021-03-15] MEDS: MENTHOL/ZINC OXIDE OINT 71 GM JAR TOP SCH ×2 (09:21→22:01)
[2021-03-16 05:37] LABS: Basophils # 0.1 10*3/uL (0.0-0.2); Basophils % 0.6 % (0.0-0.8); Eosinophils # 0.1 10*3/uL (0.0-0.87); Eosinophils % 1.1 % (0.00-10.9); Hematocrit 27.5 VOL% (35.7-47.0); Hemoglobin 8.5 GM/DL (12.0-16.0); Immature Granulocytes % 3.1 %; Immature Granulocytes Absolute 0.39 #; Lymphocytes # 6.3 10*3/uL (1.4-4.0); Lymphocytes % 49.9 % (21.3-54.2); Mean Corpuscular HGB Conc 30.9 GM/DL (32-36); Mean Corpuscular Volume 84.4 FL (87-102); Monocytes % 21.1 % (1.7-12.7); Neutrophils % 24.2 % (38.7-73.9); Platelet Count 46 T/CUMM (130-400); Red Blood Count 3.26 MC/CUMM (3.8-5.5); Red Cell Distribution Width 22.3 % (9.3-17.3); White Blood Count 12.7 T/CUMM (4-12)
[2021-03-16 06:04] LABS: Albumin 2.2 G/DL (3.4-5.0); Potassium 4.1 MMOL/L (3.5-5.1); Total Protein 5.2 G/DL (6.4-8.2)
[2021-03-16 06:08] LABS: Band Neutrophils 2 % (0-10); Eosinophils 1 % (0-10); Hypochromasia 1+; Lymphocytes 48 % (20-55); Microcytosis 1+; Platelet Estimate Decreased; Segmented Neutrophils 48 % (50-85); Smudge Cells Few; Total Cells Counted 100
[2021-03-16 06:09] LABS: Atypical Lymphocytes 1+
[2021-03-16] MEDS: PANTOPRAZOLE 40 MG TABLET PO SCH (09:20)
[2021-03-16] MEDS: DEXAMETHASONE 0.5 MG TABLET PO SCH (09:21)
[2021-03-16] MEDS: MENTHOL/ZINC OXIDE OINT 71 GM JAR TOP SCH (09:25)
[2021-03-16] MEDS: INSULIN REGULAR 100 UNIT/ML SUBCUT SCH ×2 (10:18→12:02)
[2021-03-16 12:48] VITALS: BP 108/53
[2021-03-16] MEDS ORDERED: HEPARIN LOCK FLUSH 500 UNIT/5 ML SYRINGE IV ONE (14:09)
[2021-03-16] MEDS: LACTATED RINGERS 1,000 ML IV SCH (15:32)
== END 2021-03-16 15:45 | disposition home or self-care (01) | DRG 841 ==
LOC: N.ED 11:10 → N.EDINP 15:27 → SUATTDRO 15:27 → N.EDINP 16:10 → N.5E 16:19 → N.2W 03-09 12:04
PROVIDERS: ADMIT Internal Medicine Geriatric Medicine; ATTEND Internal Medicine
PROC: IRTHORA (2021-03-11 11:05)

== ENCOUNTER 2021-04-16 13:12 | Inpatient (IN) ==
[2021-04-16 14:23] LABS: Basophils # 0.1 10*3/uL (0.0-0.2); Basophils % 0.2 % (0.0-0.8); Eosinophils % 0.1 % (0.00-10.9); Hematocrit 22.8 VOL% (35.7-47.0); Hemoglobin 6.7 GM/DL (12.0-16.0); Immature Granulocytes % 2.6 %; Immature Granulocytes Absolute 0.67 #; Lymphocytes # 15.2 10*3/uL (1.4-4.0); Lymphocytes % 59.2 % (21.3-54.2); Mean Corpuscular HGB Conc 29.4 GM/DL (32-36); Mean Corpuscular Volume 81.1 FL (87-102); NRBC # 0.04 10*3/uL; Neutrophils % 13.9 % (38.7-73.9); Platelet Count 67 T/CUMM (130-400); Red Blood Count 2.81 MC/CUMM (3.8-5.5); Red Cell Distribution Width 26.5 % (9.3-17.3); White Blood Count 25.7 T/CUMM (4-12)
[2021-04-16] MEDS ORDERED: PIPERACILLIN/TAZOBACTAM 3,375 MG in SODIUM CHLORIDE 0.9% 100 ML IV STA (14:30)
[2021-04-16 14:37] LABS: INR 1.1; PT Patient Result 12.1 SECS (10.5-12.0); Partial Thromboplastin Time 33.3 SECS (23.8-32.1)
[2021-04-16 14:51] LABS: Albumin 2.5 G/DL (3.4-5.0); Bilirubin,Total 0.8 MG/DL (0.20-1.00); Calcium 8.3 MG/DL (8.5-10.1); Osmolality,Calculated 285.8 MOS/KG (273-304); Potassium 2.8 MMOL/L (3.5-5.1); Total Protein 5.6 G/DL (6.4-8.2)
[2021-04-16 14:55] LABS: Band Neutrophils 4 % (0-10); Lymphocytes 76 % (20-55); Metamyelocytes 1 %; Segmented Neutrophils 14 % (50-85); Total Cells Counted 100
[2021-04-16 14:59] LABS: Anisocytosis 2+; Macrocytosis 2+; Microcytosis 2+; Platelet Estimate Decreased
[2021-04-16 15:02] LABS: Schistocytes 1+
[2021-04-16 15:03] LABS: Poikilocytosis 1+; Polychromasia 2+
[2021-04-16 15:04] LABS: Elliptocytes Few
[2021-04-16] MEDS ORDERED: DEXTROSE 50% 25 GM/50 ML SYRINGE IV PRN (16:08)
[2021-04-16] MEDS ORDERED: hydrALAZINE 20 MG/1 ML VIAL IV PRN (16:08)
[2021-04-16] MEDS ORDERED: GLUCAGON 1 MG VIAL IM PRN (16:08)
[2021-04-16] MEDS ORDERED: ACETAMINOPHEN 325 MG TABLET PO PRN (16:08)
[2021-04-16] MEDS ORDERED: ONDANSETRON 4 MG/2 ML VIAL IV PRN (16:08)
[2021-04-16] MEDS ORDERED: SODIUM CHLORIDE 0.9% 1,000 ML IV PRN (16:12)
[2021-04-16] MEDS ORDERED: POTASSIUM CHLORIDE RIDER 10 MEQ/100 ML PREMIX IV PRN (16:15)
[2021-04-16] MEDS ORDERED: AZITHROMYCIN INJ 500 MG in SODIUM CHLORIDE 0.9% 250 ML IV ONE (16:25)
[2021-04-16] MEDS: INSULIN LISPRO 100 UNIT/ML SUBCUT SCH ×2 (16:52→21:47)
[2021-04-16] MEDS: FUROSEMIDE 40 MG/4 ML VIAL IV ONE (17:32)
[2021-04-16] MEDS: POTASSIUM CHLORIDE 20 MEQ TABLET PO PRN ×2 (18:25→22:49)
[2021-04-16] MEDS: cefTRIAXone 1,000 MG in SODIUM CHLORIDE 0.9% 100 ML IV SCH (18:31)
[2021-04-16] MEDS: ALBUTEROL/IPRATROPIUM 3 ML NEB RESP TX SCH (19:53)
[2021-04-17] MEDS: ALBUTEROL/IPRATROPIUM 3 ML NEB RESP TX SCH ×4 (01:43→19:43)
[2021-04-17] MEDS: POTASSIUM CHLORIDE 20 MEQ TABLET PO PRN ×4 (03:26→18:10)
[2021-04-17 07:18] LABS: Basophils # 0.1 10*3/uL (0.0-0.2); Basophils % 0.2 % (0.0-0.8); Eosinophils % 0.1 % (0.00-10.9); Hematocrit 21.5 VOL% (35.7-47.0); Immature Granulocytes % 3.1 %; Immature Granulocytes Absolute 0.73 #; Lymphocytes # 14.8 10*3/uL (1.4-4.0); Lymphocytes % 62.5 % (21.3-54.2); Mean Corpuscular HGB Conc 29.3 GM/DL (32-36); Mean Corpuscular Volume 82.7 FL (87-102); Monocytes % 21.7 % (1.7-12.7); NRBC # 0.02 10*3/uL; Neutrophils % 12.4 % (38.7-73.9); Platelet Count 59 T/CUMM (130-400); Red Cell Distribution Width 26.8 % (9.3-17.3); White Blood Count 23.7 T/CUMM (4-12)
[2021-04-17 07:30] LABS: Hemoglobin 6.3 GM/DL (12.0-16.0)
[2021-04-17 07:43] LABS: Calcium 8.1 MG/DL (8.5-10.1); Osmolality,Calculated 291.3 MOS/KG (273-304); Potassium 3.4 MMOL/L (3.5-5.1); Risk Ratio 4.55; VLDL Cholesterol 20.2 MG/DL
[2021-04-17 07:58] LABS: Atypical Lymphocytes 1+; Elliptocytes Few; Hypochromasia 3+; Lymphocytes 83 % (20-55); Microcytosis 1+; Platelet Estimate Decreased; Segmented Neutrophils 17 % (50-85); Total Cells Counted 100
[2021-04-17] MEDS: PANTOPRAZOLE 40 MG TABLET PO SCH (10:54)
[2021-04-17] MEDS: INSULIN LISPRO 100 UNIT/ML SUBCUT SCH ×4 (10:55→20:57)
[2021-04-17] MEDS ORDERED: MAGNESIUM SULF RIDER 2 GM/50 ML PREMIX IV ONE (11:36)
[2021-04-17] MEDS: FUROSEMIDE 40 MG/4 ML VIAL IV ONE (15:47)
[2021-04-17] MEDS: cefTRIAXone 1,000 MG in SODIUM CHLORIDE 0.9% 100 ML IV SCH (22:04)
[2021-04-17] MEDS: AZITHROMYCIN INJ 250 MG in SODIUM CHLORIDE 0.9% 250 ML IV SCH (22:42)
[2021-04-18] MEDS: ALBUTEROL/IPRATROPIUM 3 ML NEB RESP TX SCH ×4 (00:20→19:28)
[2021-04-18 05:29] LABS: Basophils # 0.1 10*3/uL (0.0-0.2); Basophils % 0.4 % (0.0-0.8); Eosinophils % 0.1 % (0.00-10.9); Lymphocytes # 19.1 10*3/uL (1.4-4.0); Lymphocytes % 56.6 % (21.3-54.2); Mean Corpuscular HGB Conc 30.9 GM/DL (32-36); Monocytes % 26.3 % (1.7-12.7); NRBC # 0.04 10*3/uL; Neutrophils % 13.6 % (38.7-73.9); Red Cell Distribution Width 22.2 % (9.3-17.3)
[2021-04-18 05:39] LABS: Hematocrit 28.8 VOL% (35.7-47.0); Hemoglobin 8.9 GM/DL (12.0-16.0); Red Blood Count 3.47 MC/CUMM (3.8-5.5); White Blood Count 33.7 T/CUMM (4-12)
[2021-04-18 05:40] LABS: Platelet Count 60 T/CUMM (130-400)
[2021-04-18 05:41] LABS: Osmolality,Calculated 289.6 MOS/KG (273-304)
[2021-04-18 05:52] LABS: Band Neutrophils 2 % (0-10); Lymphocytes 67 % (20-55); Segmented Neutrophils 30 % (50-85); Total Cells Counted 100
[2021-04-18 05:53] LABS: Atypical Lymphocytes Few; Hypochromasia 1+; Microcytosis 1+; Platelet Estimate Decreased; Smudge Cells Moderate
[2021-04-18] MEDS: PANTOPRAZOLE 40 MG TABLET PO SCH (09:00)
[2021-04-18] MEDS: INSULIN LISPRO 100 UNIT/ML SUBCUT SCH ×4 (09:02→21:09)
[2021-04-18] MEDS ORDERED: DOXYCYCLINE HYCLATE INJ 200 MG, LIDOCAINE 1% INJ 20 ML in STERILE WATER INJ 30 ML INTRAPLEUR ONE (10:33)
[2021-04-18] MEDS: cefTRIAXone 1,000 MG in SODIUM CHLORIDE 0.9% 100 ML IV SCH (17:47)
[2021-04-18] MEDS: AZITHROMYCIN INJ 250 MG in SODIUM CHLORIDE 0.9% 250 ML IV SCH (18:32)
[2021-04-19] MEDS: ALBUTEROL/IPRATROPIUM 3 ML NEB RESP TX SCH ×4 (02:15→19:00)
[2021-04-19] MEDS: INSULIN LISPRO 100 UNIT/ML SUBCUT SCH ×3 (09:38→20:43)
[2021-04-19] MEDS: PANTOPRAZOLE 40 MG TABLET PO SCH (09:41)
[2021-04-19] MEDS: cefTRIAXone 1,000 MG in SODIUM CHLORIDE 0.9% 100 ML IV SCH (17:27)
[2021-04-19] MEDS: AZITHROMYCIN INJ 250 MG in SODIUM CHLORIDE 0.9% 250 ML IV SCH (17:58)
[2021-04-20] MEDS: ALBUTEROL/IPRATROPIUM 3 ML NEB RESP TX SCH ×4 (01:35→20:00)
[2021-04-20 03:58] LABS: Basophils # 0.1 10*3/uL (0.0-0.2); Basophils % 0.4 % (0.0-0.8); Eosinophils % 0.1 % (0.00-10.9); Hematocrit 26.8 VOL% (35.7-47.0); Immature Granulocytes % 2.7 %; Immature Granulocytes Absolute 0.76 #; Lymphocytes # 14.5 10*3/uL (1.4-4.0); Lymphocytes % 51.9 % (21.3-54.2); Mean Corpuscular HGB Conc 29.9 GM/DL (32-36); Mean Corpuscular Volume 84.5 FL (87-102); Monocytes % 25.5 % (1.7-12.7); Neutrophils % 19.4 % (38.7-73.9); Red Blood Count 3.17 MC/CUMM (3.8-5.5); Red Cell Distribution Width 23.8 % (9.3-17.3); White Blood Count 27.9 T/CUMM (4-12)
[2021-04-20 04:02] LABS: Platelet Count 42 T/CUMM (130-400)
[2021-04-20 04:05] LABS: Calcium 8.4 MG/DL (8.5-10.1); Osmolality,Calculated 276.4 MOS/KG (273-304)
[2021-04-20 04:19] LABS: Atypical Lymphocytes Few; Band Neutrophils 2 % (0-10); Hypochromasia 1+; Lymphocytes 64 % (20-55); Microcytosis 1+; Platelet Estimate Decreased; Segmented Neutrophils 31 % (50-85); Smudge Cells Few; Total Cells Counted 100
[2021-04-20 07:49] LABS: Alanine Aminotransferase < 9 U/L (13-56); Albumin 2.1 G/DL (3.4-5.0); Alkaline Phosphatase 68 U/L (45-117); Aspartate Amino Transferase 12 U/L (0-37); Blood Urea Nitrogen 10 MG/DL (7-18); Calcium 8.1 MG/DL (8.5-10.1); Carbon Dioxide 28 MMOL/L (21-32); Estimated Glom Filtration Rate 107 ML/MIN; Glucose 84 MG/DL (74-106); Osmolality,Calculated 280.1 MOS/KG (273-304); Sodium 142 MMOL/L (136-145); Total Protein 5.2 G/DL (6.4-8.2)
[2021-04-20] MEDS ORDERED: SODIUM CHLORIDE 0.9% 1,000 ML IV PRN (08:20)
[2021-04-20] MEDS: INSULIN LISPRO 100 UNIT/ML SUBCUT SCH ×4 (08:44→20:16)
[2021-04-20] MEDS: PANTOPRAZOLE 40 MG TABLET PO SCH (08:45)
[2021-04-20] MEDS ORDERED: LIDOCAINE 2% 5 ML VIAL ONE (10:10)
[2021-04-20] MEDS ORDERED: propofoL 200 MG/20 ML VIAL IV ONE (10:10)
[2021-04-20] MEDS ORDERED: ONDANSETRON 4 MG/2 ML VIAL ONE (10:10)
[2021-04-20] MEDS ORDERED: ETOMIDATE 40 MG/20 ML VIAL IV ONE (10:10)
[2021-04-20] MEDS ORDERED: DEXAMETHASONE 4 MG/1 ML VIAL ONE (10:10)
[2021-04-20] MEDS ORDERED: DEXMEDETOMIDINE 200 MCG/2 ML VIAL ONE (10:12)
[2021-04-20] MEDS ORDERED: LIDOCAINE 1%/EPI INJ 20 ML VIAL ONE ×2 (10:19→11:07)
[2021-04-20] MEDS ORDERED: DOXYCYCLINE HYCLATE INJ 200 MG, LIDOCAINE 1% INJ 20 ML in STERILE WATER INJ 30 ML INTRAPLEUR ONE (10:33)
[2021-04-20] MEDS ORDERED: LACTATED RINGERS 1,000 ML IV SCH (11:00)
[2021-04-20] MEDS ORDERED: PHENYLEPHRINE 1 MG/10 ML SYRINGE IV ONE (11:06)
[2021-04-20] MEDS: cefTRIAXone 1,000 MG in SODIUM CHLORIDE 0.9% 100 ML IV SCH (18:21)
[2021-04-20] MEDS: MENTHOL/ZINC OXIDE OINT 71 GM JAR TOP SCH (21:00)
[2021-04-20] MEDS: AZITHROMYCIN INJ 250 MG in SODIUM CHLORIDE 0.9% 250 ML IV SCH (21:19)
[2021-04-21] MEDS: ALBUTEROL/IPRATROPIUM 3 ML NEB RESP TX SCH ×4 (01:16→19:00)
[2021-04-21 05:24] LABS: Basophils # 0.1 10*3/uL (0.0-0.2); Basophils % 0.4 % (0.0-0.8); Hematocrit 31.7 VOL% (35.7-47.0); Hemoglobin 9.6 GM/DL (12.0-16.0); Immature Granulocytes % 4.2 %; Immature Granulocytes Absolute 1.13 #; Lymphocytes # 13.9 10*3/uL (1.4-4.0); Lymphocytes % 51.8 % (21.3-54.2); Mean Corpuscular HGB Conc 30.3 GM/DL (32-36); Mean Corpuscular Volume 86.6 FL (87-102); Monocytes % 19.7 % (1.7-12.7); Neutrophils % 23.9 % (38.7-73.9); Platelet Count 40 T/CUMM (130-400); Red Blood Count 3.66 MC/CUMM (3.8-5.5); Red Cell Distribution Width 22.5 % (9.3-17.3); White Blood Count 26.9 T/CUMM (4-12)
[2021-04-21 05:48] LABS: Alanine Aminotransferase < 6 U/L (13-56); Alkaline Phosphatase 68 U/L (45-117); Aspartate Amino Transferase 12 U/L (0-37); Blood Urea Nitrogen 16 MG/DL (7-18); Calcium 8.5 MG/DL (8.5-10.1); Carbon Dioxide 29 MMOL/L (21-32); Estimated Glom Filtration Rate 107 ML/MIN; Glucose 141 MG/DL (74-106); Osmolality,Calculated 281.4 MOS/KG (273-304); Potassium 4.1 MMOL/L (3.5-5.1); Sodium 140 MMOL/L (136-145); Total Protein 5.1 G/DL (6.4-8.2)
[2021-04-21 05:50] LABS: Band Neutrophils 8 % (0-10); Lymphocytes 34 % (20-55); Platelet Estimate Decreased; Segmented Neutrophils 47 % (50-85); Smudge Cells Moderate; Total Cells Counted 100
[2021-04-21] MEDS: INSULIN LISPRO 100 UNIT/ML SUBCUT SCH ×4 (08:09→20:28)
[2021-04-21] MEDS: MENTHOL/ZINC OXIDE OINT 71 GM JAR TOP SCH ×2 (08:15→20:28)
[2021-04-21] MEDS: PANTOPRAZOLE 40 MG TABLET PO SCH (08:15)
[2021-04-21] MEDS ORDERED: KETOROLAC 30 MG/1 ML VIAL IV ONE (08:50)
[2021-04-21] MEDS: fentaNYL 12 MCG/HR PATCH TRANSDERM SCH (09:43)
[2021-04-21] MEDS: KETOROLAC 10 MG TABLET PO SCH ×3 (14:54→23:02)
[2021-04-21] MEDS ORDERED: SODIUM CHLORIDE 0.9% 1,000 ML IV ONE (15:00)
[2021-04-21] MEDS: DEXT 5% NACL 0.45% KCL 20 MEQ 20 MEQ/1,000 ML BAG IV SCH (16:26)
[2021-04-21] MEDS: cefTRIAXone 1,000 MG in SODIUM CHLORIDE 0.9% 100 ML IV SCH (17:48)
[2021-04-21] MEDS: AZITHROMYCIN INJ 250 MG in SODIUM CHLORIDE 0.9% 250 ML IV SCH (18:54)
[2021-04-22] MEDS: ALBUTEROL/IPRATROPIUM 3 ML NEB RESP TX SCH ×4 (01:00→20:32)
[2021-04-22] MEDS: DEXT 5% NACL 0.45% KCL 20 MEQ 20 MEQ/1,000 ML BAG IV SCH ×2 (03:10→13:56)
[2021-04-22] MEDS: KETOROLAC 10 MG TABLET PO SCH ×3 (05:18→17:53)
[2021-04-22 06:08] LABS: Basophils # 0.1 10*3/uL (0.0-0.2); Basophils % 0.3 % (0.0-0.8); Eosinophils # 0.1 10*3/uL (0.0-0.87); Eosinophils % 0.3 % (0.00-10.9); Hematocrit 32.9 VOL% (35.7-47.0); Hemoglobin 9.8 GM/DL (12.0-16.0); Immature Granulocytes % 5.6 %; Lymphocytes % 56.4 % (21.3-54.2); Mean Corpuscular HGB Conc 29.8 GM/DL (32-36); Mean Corpuscular Volume 87.5 FL (87-102); Monocytes % 18.4 % (1.7-12.7); Red Blood Count 3.76 MC/CUMM (3.8-5.5); Red Cell Distribution Width 22.9 % (9.3-17.3); White Blood Count 23.1 T/CUMM (4-12)
[2021-04-22 06:14] LABS: Alanine Aminotransferase < 6 U/L (13-56); Albumin 1.8 G/DL (3.4-5.0); Alkaline Phosphatase 62 U/L (45-117); Aspartate Amino Transferase 8 U/L (0-37); Blood Urea Nitrogen 18 MG/DL (7-18); Calcium 8.3 MG/DL (8.5-10.1); Carbon Dioxide 30 MMOL/L (21-32); Estimated Glom Filtration Rate 101 ML/MIN; Glucose 134 MG/DL (74-106); Osmolality,Calculated 284.3 MOS/KG (273-304); Potassium 3.8 MMOL/L (3.5-5.1); Sodium 141 MMOL/L (136-145); Total Protein 4.8 G/DL (6.4-8.2)
[2021-04-22 06:23] LABS: Platelet Count 37 T/CUMM (130-400)
[2021-04-22 06:50] LABS: Atypical Lymphocytes Few; Band Neutrophils 1 % (0-10); Hypochromasia 1+; Lymphocytes 59 % (20-55); Microcytosis 1+; Platelet Estimate Decreased; Segmented Neutrophils 35 % (50-85); Smudge Cells Few; Total Cells Counted 100
[2021-04-22] MEDS: MENTHOL/ZINC OXIDE OINT 71 GM JAR TOP SCH ×2 (08:22→21:08)
[2021-04-22] MEDS: INSULIN LISPRO 100 UNIT/ML SUBCUT SCH ×4 (08:23→21:07)
[2021-04-22] MEDS: PANTOPRAZOLE 40 MG TABLET PO SCH (08:23)
[2021-04-22] MEDS: cefTRIAXone 1,000 MG in SODIUM CHLORIDE 0.9% 100 ML IV SCH (17:53)
[2021-04-22] MEDS: AZITHROMYCIN INJ 250 MG in SODIUM CHLORIDE 0.9% 250 ML IV SCH (18:38)
[2021-04-23] MEDS: KETOROLAC 10 MG TABLET PO SCH ×5 (00:57→23:08)
[2021-04-23] MEDS: ALBUTEROL/IPRATROPIUM 3 ML NEB RESP TX SCH ×4 (01:45→20:10)
[2021-04-23] MEDS: DEXT 5% NACL 0.45% KCL 20 MEQ 20 MEQ/1,000 ML BAG IV SCH ×2 (01:56→13:22)
[2021-04-23 06:36] LABS: Alanine Aminotransferase < 6 U/L (13-56); Albumin 1.7 G/DL (3.4-5.0); Alkaline Phosphatase 69 U/L (45-117); Aspartate Amino Transferase 9 U/L (0-37); Blood Urea Nitrogen 12 MG/DL (7-18); Calcium 7.7 MG/DL (8.5-10.1); Carbon Dioxide 27 MMOL/L (21-32); Estimated Glom Filtration Rate 106 ML/MIN; Glucose 156 MG/DL (74-106); Osmolality,Calculated 281.4 MOS/KG (273-304); Potassium 4.1 MMOL/L (3.5-5.1); Sodium 140 MMOL/L (136-145); Total Protein 4.7 G/DL (6.4-8.2)
[2021-04-23 07:01] LABS: Basophils # 0.1 10*3/uL (0.0-0.2); Basophils % 0.3 % (0.0-0.8); Eosinophils # 0.1 10*3/uL (0.0-0.87); Eosinophils % 0.3 % (0.00-10.9); Hematocrit 30.8 VOL% (35.7-47.0); Hemoglobin 9.1 GM/DL (12.0-16.0); Immature Granulocytes % 3.9 %; Immature Granulocytes Absolute 0.89 #; Lymphocytes # 11.6 10*3/uL (1.4-4.0); Lymphocytes % 51.1 % (21.3-54.2); Mean Corpuscular HGB Conc 29.5 GM/DL (32-36); Mean Corpuscular Volume 87.3 FL (87-102); Neutrophils % 20.4 % (38.7-73.9); Red Blood Count 3.53 MC/CUMM (3.8-5.5); Red Cell Distribution Width 23.2 % (9.3-17.3); White Blood Count 22.6 T/CUMM (4-12)
[2021-04-23 07:07] LABS: Platelet Count 36 T/CUMM (130-400)
[2021-04-23 07:39] LABS: Band Neutrophils 6 % (0-10); Eosinophils 1 % (0-10); Lymphocytes 47 % (20-55); Segmented Neutrophils 40 % (50-85); Total Cells Counted 100
[2021-04-23 07:40] LABS: Anisocytosis 1+; Atypical Lymphocytes Few; Hypochromasia 1+; Microcytosis 1+; Ovalocytes Slight; Smudge Cells Few
[2021-04-23 07:41] LABS: Platelet Estimate Decreased
[2021-04-23] MEDS ORDERED: FUROSEMIDE 40 MG/4 ML VIAL IV ONE (07:57)
[2021-04-23] MEDS: INSULIN LISPRO 100 UNIT/ML SUBCUT SCH ×4 (08:41→20:09)
[2021-04-23] MEDS: PANTOPRAZOLE 40 MG TABLET PO SCH (08:41)
[2021-04-23] MEDS: MENTHOL/ZINC OXIDE OINT 71 GM JAR TOP SCH ×2 (10:27→20:11)
[2021-04-23] MEDS: cefTRIAXone 1,000 MG in SODIUM CHLORIDE 0.9% 100 ML IV SCH (17:01)
[2021-04-24] MEDS: DEXT 5% NACL 0.45% KCL 20 MEQ 20 MEQ/1,000 ML BAG IV SCH ×2 (00:21→10:21)
[2021-04-24] MEDS: ALBUTEROL/IPRATROPIUM 3 ML NEB RESP TX SCH ×3 (01:50→14:08)
[2021-04-24 05:15] LABS: Basophils # 0.1 10*3/uL (0.0-0.2); Basophils % 0.3 % (0.0-0.8); Eosinophils # 0.1 10*3/uL (0.0-0.87); Eosinophils % 0.3 % (0.00-10.9); Hematocrit 27.9 VOL% (35.7-47.0); Hemoglobin 8.5 GM/DL (12.0-16.0); Immature Granulocytes % 4.4 %; Immature Granulocytes Absolute 1.06 #; Lymphocytes # 12.6 10*3/uL (1.4-4.0); Lymphocytes % 51.9 % (21.3-54.2); Mean Corpuscular HGB Conc 30.5 GM/DL (32-36); Mean Corpuscular Volume 87.2 FL (87-102); Monocytes % 25.6 % (1.7-12.7); Neutrophils % 17.5 % (38.7-73.9); White Blood Count 24.2 T/CUMM (4-12)
[2021-04-24] MEDS: KETOROLAC 10 MG TABLET PO SCH (05:48)
[2021-04-24 05:51] LABS: Alanine Aminotransferase < 6 U/L (13-56); Albumin 1.6 G/DL (3.4-5.0); Alkaline Phosphatase 65 U/L (45-117); Aspartate Amino Transferase 10 U/L (0-37); Blood Urea Nitrogen 10 MG/DL (7-18); Calcium 7.6 MG/DL (8.5-10.1); Carbon Dioxide 29 MMOL/L (21-32); Estimated Glom Filtration Rate 106 ML/MIN; Glucose 106 MG/DL (74-106); Osmolality,Calculated 281.1 MOS/KG (273-304); Potassium 4.2 MMOL/L (3.5-5.1); Sodium 142 MMOL/L (136-145); Total Protein 4.5 G/DL (6.4-8.2)
[2021-04-24 06:19] LABS: Platelet Count 38 T/CUMM (130-400)
[2021-04-24 06:24] LABS: Band Neutrophils 4 % (0-10); Lymphocytes 52 % (20-55); Segmented Neutrophils 19 % (50-85); Total Cells Counted 100
[2021-04-24 06:25] LABS: Atypical Lymphocytes Moderate; Platelet Estimate Decreased
[2021-04-24] MEDS ORDERED: FUROSEMIDE 40 MG/4 ML VIAL IV ONE (07:45)
[2021-04-24] MEDS: INSULIN LISPRO 100 UNIT/ML SUBCUT SCH ×2 (09:00→11:59)
[2021-04-24] MEDS: PANTOPRAZOLE 40 MG TABLET PO SCH (09:03)
[2021-04-24] MEDS: fentaNYL 12 MCG/HR PATCH TRANSDERM SCH (09:07)
[2021-04-24] MEDS: MENTHOL/ZINC OXIDE OINT 71 GM JAR TOP SCH (09:07)
[2021-04-24 15:48] VITALS: BP 140/65
== END 2021-04-24 15:49 | disposition home health service (06) | DRG 840 ==
LOC: EDUNIT# → EDBD → N.ED 13:12 → SUATTDRO 16:08 → N.EDINP 16:08 → N.TELEN 19:01 → N.2E 04-21 14:44
PROVIDERS: ADMIT Internal Medicine; ATTEND Internal Medicine

== ENCOUNTER 2021-04-30 13:01 | Inpatient (IN) ==
[2021-04-30 19:17] LABS: Basophils # 0.1 10*3/uL (0.0-0.2); Basophils % 0.3 % (0.0-0.8); Hematocrit 28.6 VOL% (35.7-47.0); Hemoglobin 8.6 GM/DL (12.0-16.0); Immature Granulocytes % 3.9 %; Immature Granulocytes Absolute 0.84 #; Lymphocytes # 11.1 10*3/uL (1.4-4.0); Lymphocytes % 52.2 % (21.3-54.2); Mean Corpuscular HGB Conc 30.1 GM/DL (32-36); Mean Corpuscular Volume 86.4 FL (87-102); Monocytes % 25.9 % (1.7-12.7); Neutrophils % 17.7 % (38.7-73.9); Red Blood Count 3.31 MC/CUMM (3.8-5.5); Red Cell Distribution Width 23.9 % (9.3-17.3); White Blood Count 21.3 T/CUMM (4-12)
[2021-04-30 19:19] LABS: Platelet Count 28 T/CUMM (130-400)
[2021-04-30 19:37] LABS: Anisocytosis 1+; Band Neutrophils 11 % (0-10); Hypochromia 1+; Lymphocytes 60 % (20-55); Metamyelocytes 1 %; Segmented Neutrophils 23 % (50-85); Total Cells Counted 100
[2021-04-30 19:38] LABS: Atypical Lymphocytes 1+; Platelet Estimate Decreased
[2021-04-30 19:42] LABS: Albumin 2.4 G/DL (3.4-5.0); Bilirubin,Total 0.7 MG/DL (0.20-1.00); Calcium 8.8 MG/DL (8.5-10.1); Potassium 3.6 MMOL/L (3.5-5.1); Total Protein 5.7 G/DL (6.4-8.2)
[2021-04-30] MEDS ORDERED: diphenhydrAMINE CAP 25 MG CAPSULE PO PRN (20:52)
[2021-04-30] MEDS ORDERED: hydrALAZINE 20 MG/1 ML VIAL IV PRN (20:52)
[2021-04-30] MEDS ORDERED: ONDANSETRON 4 MG/2 ML VIAL IV PRN (20:52)
[2021-04-30] MEDS ORDERED: GLUCAGON 1 MG VIAL IM PRN (20:52)
[2021-04-30] MEDS ORDERED: ACETAMINOPHEN 325 MG TABLET PO PRN (20:52)
[2021-04-30] MEDS ORDERED: ZALEPLON 5 MG CAPSULE PO PRN (20:52)
[2021-04-30] MEDS ORDERED: guaiFENesin/DM ER 600-30 MG TABLET PO PRN (20:52)
[2021-04-30] MEDS ORDERED: DOCUSATE SODIUM 100 MG CAPSULE PO PRN (20:52)
[2021-04-30] MEDS ORDERED: NICOTINE 21 MG/24 HR PATCH TRANSDERM PRN (20:52)
[2021-04-30] MEDS ORDERED: DEXTROSE 50% 25 GM/50 ML SYRINGE IV PRN (20:55)
[2021-05-01] MEDS: ALBUTEROL/IPRATROPIUM 3 ML NEB RESP TX SCH ×4 (01:00→19:16)
[2021-05-01 06:27] LABS: Basophils % 0.2 % (0.0-0.8); Eosinophils % 0.1 % (0.00-10.9); Hematocrit 23.7 VOL% (35.7-47.0); Immature Granulocytes % 2.7 %; Immature Granulocytes Absolute 0.53 #; Lymphocytes # 11.5 10*3/uL (1.4-4.0); Lymphocytes % 57.5 % (21.3-54.2); Mean Corpuscular HGB Conc 30.4 GM/DL (32-36); Mean Corpuscular Volume 86.2 FL (87-102); Monocytes % 22.6 % (1.7-12.7); Neutrophils % 16.9 % (38.7-73.9); Red Cell Distribution Width 23.7 % (9.3-17.3)
[2021-05-01 06:36] LABS: Calcium 8.6 MG/DL (8.5-10.1); Osmolality,Calculated 290.8 MOS/KG (273-304); Potassium 3.2 MMOL/L (3.5-5.1)
[2021-05-01 07:14] LABS: Hemoglobin 7.2 GM/DL (12.0-16.0); Red Blood Count 2.75 MC/CUMM (3.8-5.5)
[2021-05-01 07:15] LABS: Platelet Count 26 T/CUMM (130-400)
[2021-05-01] MEDS: PANTOPRAZOLE 40 MG TABLET PO SCH (08:52)
[2021-05-01 08:55] LABS: Atypical Lymphocytes Few; Hypochromia 2+; Lymphocytes 69 % (20-55); Metamyelocytes 1 %; Platelet Estimate Decreased; Polychromasia Slight; Segmented Neutrophils 29 % (50-85); Smudge Cells 2+; Total Cells Counted 100
[2021-05-01] MEDS ORDERED: cefTRIAXone 1,000 MG in SYRINGE 1 EACH IV SCH (18:00)
[2021-05-01] MEDS: DOXYCYCLINE HYCLATE INJ 100 MG in SODIUM CHLORIDE 0.9% 100 ML IV SCH (19:08)
[2021-05-01] MEDS: cefTRIAXone 1,000 MG in SODIUM CHLORIDE 0.9% 100 ML IV SCH (21:19)
[2021-05-02] MEDS: ALBUTEROL/IPRATROPIUM 3 ML NEB RESP TX SCH ×4 (00:17→20:48)
[2021-05-02] MEDS: DOXYCYCLINE HYCLATE INJ 100 MG in SODIUM CHLORIDE 0.9% 100 ML IV SCH ×2 (05:34→18:35)
[2021-05-02 06:29] LABS: Basophils # 0.1 10*3/uL (0.0-0.2); Basophils % 0.2 % (0.0-0.8); Eosinophils % 0.1 % (0.00-10.9); Hemoglobin 6.8 GM/DL (12.0-16.0); Immature Granulocytes % 2.2 %; Immature Granulocytes Absolute 0.51 #; Lymphocytes # 11.4 10*3/uL (1.4-4.0); Lymphocytes % 48.7 % (21.3-54.2); Mean Corpuscular HGB Conc 29.6 GM/DL (32-36); Mean Corpuscular Volume 86.8 FL (87-102); Monocytes % 34.4 % (1.7-12.7); Neutrophils % 14.4 % (38.7-73.9); Red Blood Count 2.65 MC/CUMM (3.8-5.5); White Blood Count 23.3 T/CUMM (4-12)
[2021-05-02 06:31] LABS: Platelet Count 25 T/CUMM (130-400)
[2021-05-02 06:51] LABS: Atypical Lymphocytes Few; Band Neutrophils 2 % (0-10); Hypochromia 1+; Lymphocytes 47 % (20-55); Microcytosis 1+; Platelet Estimate Decreased; Segmented Neutrophils 45 % (50-85); Smudge Cells Moderate; Total Cells Counted 100
[2021-05-02 06:56] LABS: Calcium 8.2 MG/DL (8.5-10.1); Osmolality,Calculated 292.6 MOS/KG (273-304); Potassium 3.2 MMOL/L (3.5-5.1)
[2021-05-02] MEDS: PANTOPRAZOLE 40 MG TABLET PO SCH (10:33)
[2021-05-02] MEDS ORDERED: SODIUM CHLORIDE 0.9% 1,000 ML IV PRN (11:50)
[2021-05-02] MEDS: cefTRIAXone 1,000 MG in SODIUM CHLORIDE 0.9% 100 ML IV SCH (20:42)
[2021-05-03] MEDS: ALBUTEROL/IPRATROPIUM 3 ML NEB RESP TX SCH ×4 (00:52→20:25)
[2021-05-03] MEDS: DOXYCYCLINE HYCLATE INJ 100 MG in SODIUM CHLORIDE 0.9% 100 ML IV SCH ×2 (05:26→17:39)
[2021-05-03 07:33] LABS: Basophils # 0.1 10*3/uL (0.0-0.2); Basophils % 0.2 % (0.0-0.8); Lymphocytes % 54.2 % (21.3-54.2); Mean Corpuscular HGB Conc 30.8 GM/DL (32-36); Mean Corpuscular Volume 85.5 FL (87-102); Monocytes % 30.6 % (1.7-12.7); Neutrophils % 13.2 % (38.7-73.9); Red Blood Count 3.04 MC/CUMM (3.8-5.5); White Blood Count 27.7 T/CUMM (4-12)
[2021-05-03 07:46] LABS: Platelet Count 22 T/CUMM (130-400)
[2021-05-03 07:48] LABS: Calcium 8.2 MG/DL (8.5-10.1); Osmolality,Calculated 294.6 MOS/KG (273-304); Potassium 3.3 MMOL/L (3.5-5.1)
[2021-05-03 08:22] LABS: Band Neutrophils 6 % (0-10); Lymphocytes 65 % (20-55); Segmented Neutrophils 26 % (50-85)
[2021-05-03 08:23] LABS: Atypical Lymphocytes Few; Hypochromia 1+
[2021-05-03 08:24] LABS: Microcytosis 1+
[2021-05-03 08:26] LABS: Platelet Estimate Decreased; Smudge Cells Moderate
[2021-05-03] MEDS: PANTOPRAZOLE 40 MG TABLET PO SCH (09:47)
[2021-05-03] MEDS ORDERED: ALUMINUM/MAGNES/SIMETH MAX STR 30 ML UDCUP PO PRN (19:59)
[2021-05-03] MEDS: cefTRIAXone 1,000 MG in SODIUM CHLORIDE 0.9% 100 ML IV SCH (20:19)
[2021-05-04] MEDS: ALBUTEROL/IPRATROPIUM 3 ML NEB RESP TX SCH ×4 (01:33→19:05)
[2021-05-04 03:12] LABS: Basophils % 0.2 % (0.0-0.8); Hemoglobin 7.8 GM/DL (12.0-16.0); Lymphocytes # 14.9 10*3/uL (1.4-4.0); Lymphocytes % 64.5 % (21.3-54.2); Mean Corpuscular Volume 86.7 FL (87-102); Monocytes % 21.3 % (1.7-12.7); Neutrophils % 11.8 % (38.7-73.9); Red Cell Distribution Width 22.2 % (9.3-17.3); White Blood Count 23.1 T/CUMM (4-12)
[2021-05-04 03:18] LABS: Platelet Count 17 T/CUMM (130-400)
[2021-05-04 03:30] LABS: Calcium 8.2 MG/DL (8.5-10.1); Osmolality,Calculated 291.6 MOS/KG (273-304); Potassium 3.1 MMOL/L (3.5-5.1)
[2021-05-04 04:04] LABS: Atypical Lymphocytes Moderate; Hypochromia 1+; Lymphocytes 68 % (20-55); Microcytosis 1+; Platelet Estimate Decreased; Segmented Neutrophils 32 % (50-85); Smudge Cells Moderate
[2021-05-04] MEDS: DOXYCYCLINE HYCLATE INJ 100 MG in SODIUM CHLORIDE 0.9% 100 ML IV SCH ×2 (05:36→22:46)
[2021-05-04] MEDS ORDERED: SODIUM CHLORIDE 0.9% 1,000 ML IV PRN (07:41)
[2021-05-04] MEDS: PANTOPRAZOLE 40 MG TABLET PO SCH (09:27)
[2021-05-04 10:08] LABS: Albumin 1.8 G/DL (3.4-5.0); Bilirubin,Total 0.8 MG/DL (0.20-1.00); Calcium 8.2 MG/DL (8.5-10.1); Osmolality,Calculated 290.6 MOS/KG (273-304); Total Protein 4.8 G/DL (6.4-8.2)
[2021-05-04] MEDS ORDERED: ZINC OXIDE PASTE 113 GM TUBE TOP PRN (11:10)
[2021-05-04] MEDS: POTASSIUM CHLORIDE RIDER 10 MEQ/100 ML PREMIX IV SCH ×3 (15:31→17:51)
[2021-05-04] MEDS: cefTRIAXone 1,000 MG in SODIUM CHLORIDE 0.9% 100 ML IV SCH (20:49)
[2021-05-05] MEDS: ALBUTEROL/IPRATROPIUM 3 ML NEB RESP TX SCH ×4 (00:11→19:25)
[2021-05-05 05:45] LABS: Basophils # 0.1 10*3/uL (0.0-0.2); Basophils % 0.2 % (0.0-0.8); Eosinophils % 0.1 % (0.00-10.9); Hematocrit 32.5 VOL% (35.7-47.0); Hemoglobin 9.9 GM/DL (12.0-16.0); Lymphocytes # 16.5 10*3/uL (1.4-4.0); Lymphocytes % 57.8 % (21.3-54.2); Mean Corpuscular HGB Conc 30.5 GM/DL (32-36); Mean Corpuscular Volume 88.1 FL (87-102); Monocytes % 29.2 % (1.7-12.7); Neutrophils % 11.2 % (38.7-73.9); Red Blood Count 3.69 MC/CUMM (3.8-5.5); Red Cell Distribution Width 20.6 % (9.3-17.3); White Blood Count 28.6 T/CUMM (4-12)
[2021-05-05 05:50] LABS: Platelet Count 18 T/CUMM (130-400)
[2021-05-05 06:02] LABS: Bilirubin,Total 1.5 MG/DL (0.20-1.00); Calcium 8.5 MG/DL (8.5-10.1); Osmolality,Calculated 291.7 MOS/KG (273-304); Potassium 3.6 MMOL/L (3.5-5.1); Total Protein 5.1 G/DL (6.4-8.2)
[2021-05-05 06:08] LABS: Atypical Lymphocytes 1+; Band Neutrophils 16 % (0-10); Lymphocytes 72 % (20-55); Platelet Estimate Decreased; Segmented Neutrophils 7 % (50-85); Smudge Cells Many
[2021-05-05 06:09] LABS: Anisocytosis 1+
[2021-05-05 06:10] LABS: Macrocytosis Slight
[2021-05-05] MEDS ORDERED: LACTULOSE 20 GM/30 ML UDCUP PO PRN (09:30)
[2021-05-05] MEDS ORDERED: TEMAZEPAM 7.5 MG CAPSULE PO PRN (09:30)
[2021-05-05] MEDS ORDERED: MYLANTA/LIDO VISC 2:1 300 ML BOTTLE SWISH/SPIT PRN (09:30)
[2021-05-05] MEDS ORDERED: MAGNESIUM HYDROXIDE SUSP 30 ML UDCUP PO PRN (09:30)
[2021-05-05] MEDS ORDERED: PROMETHAZINE INJ 25 MG in SODIUM CHLORIDE 0.9% 50 ML IV PRN (09:30)
[2021-05-05] MEDS ORDERED: LOPERAMIDE 2 MG CAPSULE PO PRN ×2 (09:30)
[2021-05-05] MEDS ORDERED: MYLANTA/LIDO VISC 2:1 300 ML BOTTLE SWISH/SWAL PRN (09:30)
[2021-05-05] MEDS ORDERED: traMADol 50 MG TABLET PO PRN (09:30)
[2021-05-05] MEDS ORDERED: ONDANSETRON 4 MG/2 ML VIAL IV PRN (09:30)
[2021-05-05] MEDS: guaiFENesin 200 MG/10 ML UDCUP PO PRN ×2 (09:44→19:15)
[2021-05-05] MEDS: DOXYCYCLINE HYCLATE INJ 100 MG in SODIUM CHLORIDE 0.9% 100 ML IV SCH (11:19)
[2021-05-05] MEDS: FUROSEMIDE 40 MG/4 ML VIAL IV SCH ×2 (13:57→18:17)
[2021-05-05] MEDS ORDERED: NITROGLYCERIN SL 0.4 MG TABLET SL ONE ×2 (14:01→14:02)
[2021-05-05] MEDS ORDERED: METOPROLOL TARTRATE 5 MG/5 ML VIAL IV ONE ×2 (14:02→20:54)
[2021-05-05] MEDS ORDERED: SODIUM CHLORIDE 0.9% 1,000 ML IV PRN (14:15)
[2021-05-05] MEDS ORDERED: DILTIAZEM 50 MG/10 ML VIAL IV ONE (14:20)
[2021-05-05] MEDS ORDERED: DILTIAZEM 25 MG/5 ML VIAL IV ONE (14:23)
[2021-05-05] MEDS: PANTOPRAZOLE 40 MG TABLET PO SCH (14:29)
[2021-05-05] MEDS ORDERED: MORPHINE 2 MG/1 ML SYRINGE IV ONE (20:54)
[2021-05-05] MEDS ORDERED: FUROSEMIDE 40 MG/4 ML VIAL IV ONE (20:58)
[2021-05-05] MEDS ORDERED: METOPROLOL TARTRATE 25 MG TABLET PO SCH (23:00)
[2021-05-05] MEDS: cefTRIAXone 1,000 MG in SODIUM CHLORIDE 0.9% 100 ML IV SCH (23:25)
[2021-05-06] MEDS: DOXYCYCLINE HYCLATE INJ 100 MG in SODIUM CHLORIDE 0.9% 100 ML IV SCH ×3 (00:04→21:50)
[2021-05-06] MEDS: ALBUTEROL/IPRATROPIUM 3 ML NEB RESP TX SCH ×4 (01:13→19:20)
[2021-05-06] MEDS: FUROSEMIDE 40 MG/4 ML VIAL IV SCH ×2 (04:00→12:09)
[2021-05-06 07:38] LABS: Basophils # 0.1 10*3/uL (0.0-0.2); Basophils % 0.3 % (0.0-0.8); Hematocrit 36.8 VOL% (35.7-47.0); Hemoglobin 11.5 GM/DL (12.0-16.0); Immature Granulocytes % 1.5 %; Immature Granulocytes Absolute 0.41 #; Lymphocytes # 13.7 10*3/uL (1.4-4.0); Lymphocytes % 48.7 % (21.3-54.2); Mean Corpuscular HGB Conc 31.3 GM/DL (32-36); Monocytes % 35.5 % (1.7-12.7); NRBC # 0.02 10*3/uL; Red Blood Count 4.23 MC/CUMM (3.8-5.5); Red Cell Distribution Width 20.2 % (9.3-17.3); White Blood Count 28.1 T/CUMM (4-12)
[2021-05-06 07:40] LABS: Platelet Count 17 T/CUMM (130-400)
[2021-05-06 07:58] LABS: Albumin 1.8 G/DL (3.4-5.0); Bilirubin,Total 2.5 MG/DL (0.20-1.00); Calcium 8.6 MG/DL (8.5-10.1); Osmolality,Calculated 296.6 MOS/KG (273-304); Potassium 3.5 MMOL/L (3.5-5.1); Total Protein 5.4 G/DL (6.4-8.2)
[2021-05-06 08:00] LABS: Atypical Lymphocytes Moderate; Lymphocytes 59 % (20-55); Platelet Estimate Decreased; Segmented Neutrophils 39 % (50-85); Total Cells Counted 100
[2021-05-06 08:01] LABS: Hypochromia 1+; Microcytosis 1+; Smudge Cells Few
[2021-05-06] MEDS ORDERED: SODIUM CHLORIDE 0.9% 1,000 ML IV PRN (09:05)
[2021-05-06] MEDS ORDERED: DEXAMETHASONE 10 MG/1 ML VIAL IV ONE (09:06)
[2021-05-06] MEDS: PANTOPRAZOLE 40 MG TABLET PO SCH (09:24)
[2021-05-06] MEDS: METOPROLOL TARTRATE 50 MG TABLET PO SCH ×2 (09:27→21:13)
[2021-05-06] MEDS: ACALABRUTINIB 100 MG PO SCH (21:16)
[2021-05-06] MEDS: cefTRIAXone 1,000 MG in SODIUM CHLORIDE 0.9% 100 ML IV SCH (21:21)
[2021-05-07] MEDS: ALBUTEROL/IPRATROPIUM 3 ML NEB RESP TX SCH ×4 (01:00→20:00)
[2021-05-07] MEDS: FUROSEMIDE 40 MG/4 ML VIAL IV SCH ×3 (01:02→23:28)
[2021-05-07] MEDS: METOPROLOL TARTRATE 50 MG TABLET PO SCH ×2 (08:41→20:09)
[2021-05-07] MEDS: PANTOPRAZOLE 40 MG TABLET PO SCH (08:41)
[2021-05-07] MEDS: ASCORBIC ACID 500 MG TABLET PO SCH ×2 (09:09→20:56)
[2021-05-07] MEDS: ACALABRUTINIB 100 MG PO SCH ×2 (09:10→20:56)
[2021-05-07] MEDS: DOXYCYCLINE HYCLATE INJ 100 MG in SODIUM CHLORIDE 0.9% 100 ML IV SCH ×2 (09:11→21:51)
[2021-05-07 09:31] LABS: Basophils # 0.1 10*3/uL (0.0-0.2); Basophils % 0.4 % (0.0-0.8); Hematocrit 40.8 VOL% (35.7-47.0); Hemoglobin 12.5 GM/DL (12.0-16.0); Immature Granulocytes % 2.2 %; Immature Granulocytes Absolute 0.79 #; Lymphocytes # 19.1 10*3/uL (1.4-4.0); Lymphocytes % 52.7 % (21.3-54.2); Mean Corpuscular HGB Conc 30.6 GM/DL (32-36); Mean Corpuscular Volume 88.5 FL (87-102); Monocytes % 32.7 % (1.7-12.7); NRBC # 0.03 10*3/uL; Red Blood Count 4.61 MC/CUMM (3.8-5.5); Red Cell Distribution Width 20.6 % (9.3-17.3); White Blood Count 36.3 T/CUMM (4-12)
[2021-05-07 09:37] LABS: Platelet Count 20 T/CUMM (130-400)
[2021-05-07 09:52] LABS: Albumin 1.8 G/DL (3.4-5.0); Bilirubin,Total 0.9 MG/DL (0.20-1.00); Calcium 8.8 MG/DL (8.5-10.1); Osmolality,Calculated 304.6 MOS/KG (273-304); Potassium 4.2 MMOL/L (3.5-5.1); Total Protein 5.4 G/DL (6.4-8.2)
[2021-05-07 09:54] LABS: Atypical Lymphocytes Few; Hypochromia 1+; Lymphocytes 62 % (20-55); Microcytosis 1+; Platelet Estimate Decreased; Segmented Neutrophils 38 % (50-85); Smudge Cells Few; Total Cells Counted 100
[2021-05-07] MEDS: AMINO ACIDS/DEXT/LYTES 4.25-5% 2,000 ML IV SCH (16:59)
[2021-05-07] MEDS: cefTRIAXone 1,000 MG in SODIUM CHLORIDE 0.9% 100 ML IV SCH (21:22)
[2021-05-08] MEDS: ALBUTEROL/IPRATROPIUM 3 ML NEB RESP TX SCH ×4 (01:06→19:30)
[2021-05-08 05:43] LABS: Basophils # 0.1 10*3/uL (0.0-0.2); Basophils % 0.3 % (0.0-0.8); Hematocrit 36.6 VOL% (35.7-47.0); Hemoglobin 11.3 GM/DL (12.0-16.0); Immature Granulocytes Absolute 0.92 #; Lymphocytes # 18.3 10*3/uL (1.4-4.0); Lymphocytes % 59.9 % (21.3-54.2); Mean Corpuscular HGB Conc 30.9 GM/DL (32-36); Mean Corpuscular Volume 88.8 FL (87-102); Monocytes % 24.3 % (1.7-12.7); NRBC # 0.07 10*3/uL; Neutrophils % 12.5 % (38.7-73.9); Red Blood Count 4.12 MC/CUMM (3.8-5.5); Red Cell Distribution Width 20.7 % (9.3-17.3); White Blood Count 30.6 T/CUMM (4-12)
[2021-05-08 05:45] LABS: Platelet Count 10 T/CUMM (130-400)
[2021-05-08 05:54] LABS: Albumin 1.6 G/DL (3.4-5.0); Bilirubin,Total 1.4 MG/DL (0.20-1.00); Calcium 8.1 MG/DL (8.5-10.1); Potassium 4.5 MMOL/L (3.5-5.1); Total Protein 5.1 G/DL (6.4-8.2)
[2021-05-08 06:19] LABS: Atypical Lymphocytes Moderate; Band Neutrophils 3 % (0-10); Lymphocytes 74 % (20-55); Platelet Estimate Decreased; Segmented Neutrophils 14 % (50-85); Smudge Cells Moderate; Total Cells Counted 100
[2021-05-08] MEDS ORDERED: SODIUM CHLORIDE 0.9% 1,000 ML IV PRN (10:08)
[2021-05-08] MEDS: ACALABRUTINIB 100 MG PO SCH ×2 (10:12→20:53)
[2021-05-08] MEDS: ASCORBIC ACID 500 MG TABLET PO SCH ×3 (10:13→21:12)
[2021-05-08] MEDS: PANTOPRAZOLE 40 MG TABLET PO SCH (10:13)
[2021-05-08] MEDS: METOPROLOL TARTRATE 50 MG TABLET PO SCH ×2 (10:13→20:53)
[2021-05-08] MEDS: DOXYCYCLINE HYCLATE INJ 100 MG in SODIUM CHLORIDE 0.9% 100 ML IV SCH ×2 (10:14→21:38)
[2021-05-08] MEDS: guaiFENesin 200 MG/10 ML UDCUP PO PRN (15:04)
[2021-05-08] MEDS: FUROSEMIDE 40 MG/4 ML VIAL IV SCH ×2 (15:12→23:51)
[2021-05-08] MEDS: AMINO ACIDS/DEXT/LYTES 4.25-5% 2,000 ML IV SCH (18:20)
[2021-05-08] MEDS: cefTRIAXone 1,000 MG in SODIUM CHLORIDE 0.9% 100 ML IV SCH (21:09)
[2021-05-09] MEDS: ALPRAZolam 0.25 MG TABLET PO PRN ×2 (00:21→18:14)
[2021-05-09] MEDS: ALBUTEROL/IPRATROPIUM 3 ML NEB RESP TX SCH ×4 (00:45→20:50)
[2021-05-09 06:26] LABS: Basophils # 0.1 10*3/uL (0.0-0.2); Basophils % 0.3 % (0.0-0.8); Hematocrit 35.6 VOL% (35.7-47.0); Hemoglobin 10.7 GM/DL (12.0-16.0); Immature Granulocytes % 2.9 %; Immature Granulocytes Absolute 1.13 #; Lymphocytes # 22.1 10*3/uL (1.4-4.0); Lymphocytes % 56.5 % (21.3-54.2); Mean Corpuscular HGB Conc 30.1 GM/DL (32-36); Mean Corpuscular Volume 90.6 FL (87-102); Monocytes % 30.2 % (1.7-12.7); NRBC # 0.04 10*3/uL; Neutrophils % 10.1 % (38.7-73.9); Red Blood Count 3.93 MC/CUMM (3.8-5.5); Red Cell Distribution Width 20.8 % (9.3-17.3); White Blood Count 39.1 T/CUMM (4-12)
[2021-05-09 06:28] LABS: Platelet Count 38 T/CUMM (130-400)
[2021-05-09 06:58] LABS: Albumin 1.9 G/DL (3.4-5.0); Bilirubin,Total 0.9 MG/DL (0.20-1.00); Calcium 8.4 MG/DL (8.5-10.1); Osmolality,Calculated 315.1 MOS/KG (273-304); Potassium 4.5 MMOL/L (3.5-5.1); Total Protein 5.7 G/DL (6.4-8.2)
[2021-05-09 07:41] LABS: Band Neutrophils 1 % (0-10); Lymphocytes 81 % (20-55); Segmented Neutrophils 16 % (50-85); Total Cells Counted 100
[2021-05-09 07:42] LABS: Atypical Lymphocytes Moderate; Platelet Estimate Decreased
[2021-05-09 07:43] LABS: Smudge Cells Few
[2021-05-09] MEDS: METOPROLOL TARTRATE 50 MG TABLET PO SCH ×2 (09:42→20:10)
[2021-05-09] MEDS: ASCORBIC ACID 500 MG TABLET PO SCH ×3 (09:42→20:44)
[2021-05-09] MEDS: ACALABRUTINIB 100 MG PO SCH ×2 (09:42→20:32)
[2021-05-09] MEDS ORDERED: FUROSEMIDE 40 MG/4 ML VIAL IV SCH (10:00)
[2021-05-09 11:42] LABS: ABG Base Excess 3.2 MMOL/L (-2.5-2.5); ABG HCO3 28.3 MMOL/L (20-26); ABG PCO2 45.6 MM HG (35-48); ABG PH 7.411 (7.35-7.45); ABG PO2 69.4 MM HG (80-95); ABG TCO2 29.7 MMOL/L (23-27)
[2021-05-09] MEDS ORDERED: ALBUMIN 25% 12.5 GM/50 ML VIAL IV SCH (12:00)
[2021-05-09] MEDS: ALBUMIN 25% 12.5 GM/50 ML VIAL IV SCH ×2 (12:06→20:33)
[2021-05-09] MEDS: INSULIN GLARGINE 100 UNIT/ML SUBCUT SCH ×2 (12:15→20:33)
[2021-05-09] MEDS: MEROPENEM 500 MG in SODIUM CHLORIDE 0.9% 100 ML IV SCH ×2 (12:17→16:50)
[2021-05-09] MEDS: FUROSEMIDE 40 MG/4 ML VIAL IV SCH (12:18)
[2021-05-09] MEDS: DEXAMETHASONE 10 MG/1 ML VIAL IV SCH (12:19)
[2021-05-09] MEDS: DOXYCYCLINE HYCLATE INJ 100 MG in SODIUM CHLORIDE 0.9% 100 ML IV SCH (14:11)
[2021-05-09] MEDS: DORNASE ALFA 2.5 MG/2.5 ML VIAL RESP TX SCH ×2 (15:28→21:00)
[2021-05-09] MEDS: AMINO ACIDS/DEXT/LYTES 4.25-5% 2,000 ML IV SCH (17:40)
[2021-05-09] MEDS ORDERED: INSULIN GLARGINE 100 UNIT/ML SUBCUT SCH (21:00)
[2021-05-10] MEDS: FUROSEMIDE 40 MG/4 ML VIAL IV SCH ×2 (00:03→11:12)
[2021-05-10] MEDS: DOXYCYCLINE HYCLATE INJ 100 MG in SODIUM CHLORIDE 0.9% 100 ML IV SCH ×2 (00:03→14:23)
[2021-05-10] MEDS: ALBUTEROL/IPRATROPIUM 3 ML NEB RESP TX SCH ×4 (00:10→19:49)
[2021-05-10] MEDS: MEROPENEM 500 MG in SODIUM CHLORIDE 0.9% 100 ML IV SCH ×3 (01:13→20:38)
[2021-05-10 05:47] LABS: Albumin 2.1 G/DL (3.4-5.0); Bilirubin,Total 1.3 MG/DL (0.20-1.00); Calcium 8.4 MG/DL (8.5-10.1); Osmolality,Calculated 323.7 MOS/KG (273-304); Potassium 4.5 MMOL/L (3.5-5.1); Total Protein 5.6 G/DL (6.4-8.2)
[2021-05-10 05:50] LABS: Basophils # 0.1 10*3/uL (0.0-0.2); Basophils % 0.3 % (0.0-0.8); Hematocrit 33.4 VOL% (35.7-47.0); Hemoglobin 10.1 GM/DL (12.0-16.0); Immature Granulocytes % 2.8 %; Immature Granulocytes Absolute 0.86 #; Lymphocytes # 19.6 10*3/uL (1.4-4.0); Lymphocytes % 63.5 % (21.3-54.2); Mean Corpuscular HGB Conc 30.2 GM/DL (32-36); Monocytes % 22.7 % (1.7-12.7); Neutrophils % 10.7 % (38.7-73.9); Red Blood Count 3.71 MC/CUMM (3.8-5.5); Red Cell Distribution Width 20.3 % (9.3-17.3); White Blood Count 30.8 T/CUMM (4-12)
[2021-05-10 05:53] LABS: Platelet Count 14 T/CUMM (130-400)
[2021-05-10 07:45] LABS: Hypochromia Slight; Lymphocytes 66 % (20-55); Platelet Estimate Decreased; Segmented Neutrophils 24 % (50-85); Total Cells Counted 100
[2021-05-10] MEDS: DORNASE ALFA 2.5 MG/2.5 ML VIAL RESP TX SCH ×2 (07:52→20:05)
[2021-05-10] MEDS: DEXAMETHASONE 10 MG/1 ML VIAL IV SCH (09:07)
[2021-05-10] MEDS: ACALABRUTINIB 100 MG PO SCH ×2 (09:08→20:26)
[2021-05-10] MEDS: METOPROLOL TARTRATE 50 MG TABLET PO SCH ×3 (09:09→20:39)
[2021-05-10] MEDS: ASCORBIC ACID 500 MG TABLET PO SCH ×2 (09:18→20:38)
[2021-05-10] MEDS: ALBUMIN 25% 12.5 GM/50 ML VIAL IV SCH (10:39)
[2021-05-10] MEDS ORDERED: SODIUM CHLORIDE 0.9% 1,000 ML IV PRN (13:19)
[2021-05-10] MEDS: ALPRAZolam 0.25 MG TABLET PO PRN (15:41)
[2021-05-10] MEDS: AMINO ACIDS/DEXT/LYTES 4.25-5% 2,000 ML IV SCH (15:42)
[2021-05-10] MEDS: FUROSEMIDE INJ 100 MG in SODIUM CHLORIDE 0.9% 90 ML IV SCH (18:50)
[2021-05-10] MEDS: INSULIN GLARGINE 100 UNIT/ML SUBCUT SCH (20:27)
[2021-05-10] MEDS ORDERED: INSULIN GLARGINE 100 UNIT/ML SUBCUT SCH (21:00)
[2021-05-11] MEDS: ALPRAZolam 0.25 MG TABLET PO PRN (00:15)
[2021-05-11] MEDS: ALBUTEROL/IPRATROPIUM 3 ML NEB RESP TX SCH ×4 (00:30→20:06)
[2021-05-11] MEDS: DOXYCYCLINE HYCLATE INJ 100 MG in SODIUM CHLORIDE 0.9% 100 ML IV SCH ×2 (00:47→13:18)
[2021-05-11] MEDS: MEROPENEM 500 MG in SODIUM CHLORIDE 0.9% 100 ML IV SCH ×3 (01:49→19:31)
[2021-05-11 04:52] LABS: Basophils # 0.1 10*3/uL (0.0-0.2); Basophils % 0.3 % (0.0-0.8); Hematocrit 34.8 VOL% (35.7-47.0); Hemoglobin 10.3 GM/DL (12.0-16.0); Immature Granulocytes % 3.2 %; Immature Granulocytes Absolute 1.11 #; Lymphocytes # 21.6 10*3/uL (1.4-4.0); Lymphocytes % 62.4 % (21.3-54.2); Mean Corpuscular HGB Conc 29.6 GM/DL (32-36); Mean Corpuscular Volume 90.2 FL (87-102); Monocytes % 23.3 % (1.7-12.7); Neutrophils % 10.8 % (38.7-73.9); Red Blood Count 3.86 MC/CUMM (3.8-5.5); Red Cell Distribution Width 20.7 % (9.3-17.3); White Blood Count 34.6 T/CUMM (4-12)
[2021-05-11 05:08] LABS: Platelet Count 12 T/CUMM (130-400)
[2021-05-11 05:11] LABS: Atypical Lymphocytes Few; Hypochromia Slight; Lymphocytes 78 % (20-55); Microcytosis Slight; Platelet Estimate Decreased; Segmented Neutrophils 19 % (50-85); Smudge Cells Few; Total Cells Counted 100
[2021-05-11 05:19] LABS: Albumin 2.3 G/DL (3.4-5.0); Osmolality,Calculated 317.7 MOS/KG (273-304); Total Protein 5.8 G/DL (6.4-8.2)
[2021-05-11] MEDS: DORNASE ALFA 2.5 MG/2.5 ML VIAL RESP TX SCH ×2 (07:15→20:06)
[2021-05-11] MEDS: ACALABRUTINIB 100 MG PO SCH ×2 (09:36→20:59)
[2021-05-11] MEDS: DEXAMETHASONE 10 MG/1 ML VIAL IV SCH (09:43)
[2021-05-11] MEDS: METOPROLOL TARTRATE 50 MG TABLET PO SCH ×2 (11:12→21:07)
[2021-05-11] MEDS: ASCORBIC ACID 500 MG TABLET PO SCH ×2 (11:13→21:07)
[2021-05-11] MEDS: FUROSEMIDE INJ 100 MG in SODIUM CHLORIDE 0.9% 90 ML IV SCH (13:17)
[2021-05-11] MEDS: AMINO ACIDS/DEXT/LYTES 4.25-5% 2,000 ML IV SCH (17:21)
[2021-05-11] MEDS: INSULIN GLARGINE 100 UNIT/ML SUBCUT SCH (21:07)
[2021-05-12] MEDS: ALBUTEROL/IPRATROPIUM 3 ML NEB RESP TX SCH ×4 (00:56→19:00)
[2021-05-12] MEDS: DOXYCYCLINE HYCLATE INJ 100 MG in SODIUM CHLORIDE 0.9% 100 ML IV SCH ×2 (01:06→17:09)
[2021-05-12] MEDS: MEROPENEM 500 MG in SODIUM CHLORIDE 0.9% 100 ML IV SCH ×3 (02:06→18:18)
[2021-05-12 06:22] LABS: Basophils # 0.1 10*3/uL (0.0-0.2); Basophils % 0.3 % (0.0-0.8); Hematocrit 32.3 VOL% (35.7-47.0); Hemoglobin 9.7 GM/DL (12.0-16.0); Immature Granulocytes % 3.3 %; Lymphocytes # 27.4 10*3/uL (1.4-4.0); Lymphocytes % 68.9 % (21.3-54.2); Mean Corpuscular Volume 90.5 FL (87-102); Mean Platelet Volume 9.5 FL (9.6-12.0); Monocytes % 16.8 % (1.7-12.7); NRBC # 0.02 10*3/uL; Neutrophils % 10.7 % (38.7-73.9); Platelet Count 48 T/CUMM (130-400); Red Blood Count 3.57 MC/CUMM (3.8-5.5); Red Cell Distribution Width 20.5 % (9.3-17.3); White Blood Count 39.7 T/CUMM (4-12)
[2021-05-12 06:42] LABS: Atypical Lymphocytes Few; Hypochromia 1+; Lymphocytes 83 % (20-55); Microcytosis 1+; Platelet Estimate Decreased; Segmented Neutrophils 17 % (50-85); Smudge Cells Few; Total Cells Counted 100
[2021-05-12 06:49] LABS: Albumin 2.4 G/DL (3.4-5.0); Bilirubin,Total 1.8 MG/DL (0.20-1.00); Potassium 4.9 MMOL/L (3.5-5.1)
[2021-05-12] MEDS: DORNASE ALFA 2.5 MG/2.5 ML VIAL RESP TX SCH ×2 (07:35→19:10)
[2021-05-12] MEDS: ACALABRUTINIB 100 MG PO SCH ×2 (10:16→22:32)
[2021-05-12] MEDS: methylPREDNISolone SOD SUC 40 MG/1 ML VIAL IV SCH ×3 (10:16→22:33)
[2021-05-12] MEDS: ASCORBIC ACID 500 MG TABLET PO SCH ×2 (11:46→22:33)
[2021-05-12] MEDS: METOPROLOL TARTRATE 50 MG TABLET PO SCH ×2 (11:46→22:32)
[2021-05-12] MEDS: FUROSEMIDE 40 MG/4 ML VIAL IV SCH (15:59)
[2021-05-12] MEDS ORDERED: DEXTROSE 10% 1,000 ML IV PRN (17:00)
[2021-05-12] MEDS ORDERED: MULTIVITAMIN INJ 10 ML in AMINO ACIDS/DEXT/LYTES 5-15% 2,000 ML IV SCH (17:00)
[2021-05-12] MEDS: AMINO ACIDS/DEXT/LYTES 4.25-5% 2,000 ML IV SCH (18:12)
[2021-05-12] MEDS: INSULIN GLARGINE 100 UNIT/ML SUBCUT SCH (21:19)
[2021-05-12 23:21] LABS: Fungitell Quantitative Value < 31 pg/mL (<60 pg/mL)
[2021-05-13] MEDS: ALBUTEROL/IPRATROPIUM 3 ML NEB RESP TX SCH ×3 (00:25→13:02)
[2021-05-13] MEDS: DOXYCYCLINE HYCLATE INJ 100 MG in SODIUM CHLORIDE 0.9% 100 ML IV SCH ×2 (01:45→13:11)
[2021-05-13] MEDS: MEROPENEM 500 MG in SODIUM CHLORIDE 0.9% 100 ML IV SCH ×2 (02:59→09:53)
[2021-05-13] MEDS: methylPREDNISolone SOD SUC 40 MG/1 ML VIAL IV SCH ×2 (03:59→09:49)
[2021-05-13] MEDS: DORNASE ALFA 2.5 MG/2.5 ML VIAL RESP TX SCH (07:13)
[2021-05-13 07:57] VITALS: BP 58/22
[2021-05-13 08:45] LABS: Osmolality,Calculated 339.6 MOS/KG (273-304)
[2021-05-13 08:53] LABS: Potassium 6.7 MMOL/L (3.5-5.1)
[2021-05-13 08:57] LABS: Albumin 2.2 G/DL (3.4-5.0)
[2021-05-13 09:02] LABS: Bilirubin,Total 3.3 MG/DL (0.20-1.00); Total Protein 5.3 G/DL (6.4-8.2)
[2021-05-13] MEDS: METOPROLOL TARTRATE 50 MG TABLET PO SCH (09:41)
[2021-05-13] MEDS: ACALABRUTINIB 100 MG PO SCH (09:41)
[2021-05-13] MEDS: ASCORBIC ACID 500 MG TABLET PO SCH (09:42)
[2021-05-13] MEDS: FUROSEMIDE 40 MG/4 ML VIAL IV SCH (09:46)
[2021-05-13] MEDS ORDERED: FAT EMULSION 20% 250 ML IV SCH (14:00)
[2021-05-13] MEDS ORDERED: MULTIVITAMIN INJ 10 ML in AMINO ACIDS/DEXT/LYTES 5-15% 2,000 ML IV SCH (17:00)
== END 2021-05-13 13:00 | disposition expired | DRG 840 ==
LOC: N.ED 13:01 → N.EDINP 20:52 → SUATTDRO 20:52 → N.TELES 23:49
PROVIDERS: ADMIT Internal Medicine; ATTEND Hospitalist